=== PATIENT | female | born 1950 | race Caucasian/White ===

== ENCOUNTER 2020-08-21 08:56 | Outpatient (REF) | payer MEDICARE, BC, SELFPAY ==
[2020-08-21 10:32] LABS: Estimated Average Glucose 105 mg/dL; Hemoglobin A1c % 5.3 %
[2020-08-21 11:01] LABS: Alanine Aminotransferase 19 U/L (0-31); Albumin Level 4.4 g/dL (3.5-5.0); Alkaline Phosphatase 37 U/L (39-117); Anion Gap 15 (12-20); Aspartate Amino Transferase 25 U/L (5-31); Bilirubin Total 0.4 mg/dL (0.0-1.0); Blood Urea Nitrogen 16 mg/dL (9-16); Calcium 9.8 mg/dL (8.4-10.2); Carbon Dioxide 25 mmol/L (22-29); Chloride 101 mmol/L (96-108); Cholesterol 143 mg/dL; Estimated Glomerular Filt Rate > 60; Glucose Fasting 89 mg/dL (60-99); HDL Cholesterol 59 mg/dL; LDL Cholesterol Calculated 73 mg/dl; Potassium 4.2 mmol/l (3.3-5.1); Sodium 137 mmol/L (135-145); Total Protein 6.4 g/dL (6.5-8.0); Triglycerides 55 mg/dL
[2020-08-21 11:28] LABS: Creatinine Urine 56.87 mg/dL; Microalbumin Urine < 5.0 mg/L; TSH reflex Free T4 1.05 mIU/mL (0.32-4.0)
== END 2020-08-21 08:57 | disposition home or self-care (01) ==
LOC: HO.10HDL 08:56
PROVIDERS: Visit Provider Family Medicine
DX: R73.03 Prediabetes (principal); Z00.00 Encounter for general adult medical examination without abnormal findings; I10 Essential (primary) hypertension
CPT/HCPCS: 80053; 80061; 82043; 83036; 84443

== ENCOUNTER 2021-01-15 08:59 | Outpatient (REF) | payer MEDICARE, BC, SELFPAY ==
[2021-01-15 11:02] LABS: Alanine Aminotransferase 17 U/L (0-31); Albumin Level 4.9 g/dL (3.5-5.0); Alkaline Phosphatase 39 U/L (39-117); Anion Gap 16 (12-20); Aspartate Amino Transferase 24 U/L (5-31); Bilirubin Total 0.5 mg/dL (0.0-1.0); Blood Urea Nitrogen 21 mg/dL (9-16); Carbon Dioxide 29 mmol/L (22-29); Chloride 102 mmol/L (96-108); Cholesterol 162 mg/dL; Estimated Glomerular Filt Rate > 60; Glucose Fasting 92 mg/dL (60-99); HDL Cholesterol 68 mg/dL; LDL Cholesterol Calculated 84 mg/dl; Potassium 4.8 mmol/L (3.3-5.1); Sodium 142 mmol/L (135-145); Total Protein 6.9 g/dL (6.5-8.0); Triglycerides 54 mg/dL
== END 2021-01-15 09:00 | disposition home or self-care (01) ==
LOC: HO.WFDLDS 08:59
PROVIDERS: Visit Provider Family Medicine
DX: Z00.00 Encounter for general adult medical examination without abnormal findings (principal); E11.9 Type 2 diabetes mellitus without complications
CPT/HCPCS: 36415; 80053; 80061; 84443

== ENCOUNTER 2021-03-02 07:56 | Outpatient (REF) | payer MEDICARE, BC, SELFPAY ==
--- NOTE | ~2021-03-02 | MM_ITS ---
EXAMINATION: MM SCREENING DIGITAL BREAST TOMOSYNTHESIS, BILATERAL CLINICAL INFORMATION: Screening. Asymptomatic. Remote history right breast surgery 2009. The lifetime risk of breast cancer based on the Tyrer-Cuzick Model is 3%. COMPARISON: Mammography: 02/01/2020, 01/28/2019, 07/09/2018, 01/05/2018, 12/22/2017 TECHNIQUE: Digital breast tomosynthesis is performed in both the craniocaudal and mediolateral oblique views along with computer-aided detection (CAD). Synthesized 2D images are generated from the tomosynthesis. FINDINGS: There are scattered areas of fibroglandular density (ACR BI-RADS breast composition Category b). There is no significant mass or architectural abnormality or abnormal calcifications. Minor scarring central right breast is stable from prior studies. The left breast has a chronic nodule central breast. There are bilateral scattered round calcifications with stable fine punctate calcifications inferior medial left breast. The axilla and skin contours are unremarkable. There are no significant changes from prior studies. MM/MM tomosynthesis screening BI IMPRESSION: No mammographic evidence of malignancy. ASSESSMENT: BI-RADS 2: Benign RECOMMENDATION: Routine annual mammography screening. This patient's information was entered into a reminder system with a target due date for their next mammogram.
== END 2021-03-02 07:57 | disposition home or self-care (01) ==
LOC: HO.MAMMO 07:56
PROVIDERS: Visit Provider Family Medicine
DX: Z12.31 Encounter for screening mammogram for malignant neoplasm of breast (principal)
CPT/HCPCS: 77063; 77067

== ENCOUNTER 2021-05-01 08:15 | Day surgery (SDC) | payer MEDICARE, BC, SELFPAY ==
[2021-04-25 11:52] VITALS: BMI 19.9
[2021-05-01 08:38] VITALS: BP 141/48; PULSE 59; RESP 18; TEMP 36.3; O2SAT 98
[2021-05-01] MEDS: Lactated Ringers 1,000 ML 50 ML IVCONT (08:53)
--- NOTE | 2021-05-01 09:33 | HO.ANESPROP2 ---
HPI - Anesthesia Eval Consult details Narrative: surveillance colonoscopy PMFSH Active Problems Active Problems: All Active Problems (Updated 04/25/21 @ 11:55 by Nakita Galvan) Essential hypertension (Acute) Diet-controlled diabetes mellitus (Acute) Laboratory examination ordered as part of a routine general medical examination (Acute) Annual physical exam (Acute) Screening for colon cancer (Acute) Breast cancer screening by mammogram (Acute) Screening for cervical cancer (Acute) H/O total hysterectomy (Acute) Past Medical History Medical History COVID-19 vaccine administered Diabetes Elevated cholesterol GERD (gastroesophageal reflux disease) History of diverticulitis HTN (hypertension) Functional capacity: independent ambulation Narrative: post menopausal Family History Family history of problems with anesthesia: No Surgical History Surgical History H/O colonoscopy Hx of breast biopsy Hx of cataract extraction Hx of section Hx of colectomy Hx of hysterectomy History of Problems with Anesthesia: No Social History Social History Patient Tobacco Use Status: Tobacco use Unknown Use of substances other than those prescribed or required for medical reasons: No Advance Directives Information Provided: No Travel History History of recent travel: No Meds Allergies Allergy/AdvReac Type Severity Reaction Status Date / Time No Known Allergies Allergy Verified 01/15/21 08:24 [No Known Allergies*] Active Medications: Current Medications Generic Name Dose Route Start Last Admin Trade Name Freq PRN Reason Stop Dose Admin Acetaminophen 650 mg 05/01/21 09:08 Acetaminophen 325 Mg Tablet PO ONCE PRN Pain, Mild (Pain Scale 1-3) Lactated Ringer's 1,000 mls @ 50 mls/hr 05/01/21 07:15 05/01/21 08:53 Lr IVCONT 50 mls/hr .Q20H YOLANDE Administration Ondansetron HCl 4 mg 05/01/21 09:08 Ondansetron Hcl 4 Mg/2 Ml Vial IVPUSH ONCE PRN Nausea and Vomiting Exam Exam Date and Time: May 01, 202133 Height,Weight and Vital Signs: Height 5 ft 4 in Weight 52.617 kg Last Vital Signs Temp 97.3 F 05/01/21 08:38 Pulse 59 05/01/21 08:38 Resp 18 05/01/21 08:38 BP 141/48 H 05/01/21 08:38 Pulse Ox 98 05/01/21 08:38 Narrative Narrative: no loose teeth Assessment and Plan Assessment Anesthesia Assessment: Anesthesia Plan Discussed and Chart Reviewed Final Anesthetic Review Family History of Problems with Anesthesia: No History of Problems with Anesthesia: No NPO: Yes ASA Class: III Final Preanesthetic Review: No Changes in Pt Med Stat, Meds/Allgs Chart Reviewed, Consent Obtained/Reviewed and Anes Risks/Benef Reviewed Patient Risk: Intermediate Procedure Risk: Low Assessment/Block/Sedation in SS: Assess/Block/Sedation-SS Anesthetic Plan Anesthetic Plan: MAC: and Agree w/ Assess. and Plan Disposition: Standard PACU
--- NOTE | 2021-05-01 09:47 | MHC.SHP ---
Pre-Procedural Eval Section A Date of Service: 05/01/21 The patient is an INPATIENT: No Changes since office visit: No Cold of Flu in the past 2 weeks, No New Medical Problems, No Changes in Medication and No Patient answered all questions The History & Physical has been completed within 30 days and I have reviewed it.: Yes Section B Chief Complaint: screening Allergies: Allergies Allergy/AdvReac Type Severity Reaction Status Date / Time No Known Allergies Allergy Verified 01/15/21 08:24 [No Known Allergies*] Plan I have reviewed the history and physical and performed a pertinent physical examination on my patient. No changes have occurred unless specified.
--- NOTE | 2021-05-01 10:15 | P.BOP_ITS ---
Brief Operative Note Date of Service: 05/01/21 Pre-op diagnosis: screening Post-op diagnosis: same (colon polyps) Procedure: colonoscopy Surgeon: Rodrigo Martel Anesthesia: MAC Was an Application Security Developer used for this Procedure?: No Estimated blood loss (mL): 0 Pathology: other (polyps x2) Condition: stable Disposition: PACU
[2021-05-01 10:16] VITALS: BP 111/83; PULSE 65; RESP 18; TEMP 36.1; O2SAT 98
[2021-05-01 10:31] VITALS: BP 133/90; PULSE 60; RESP 18; TEMP 36.1; O2SAT 98
--- NOTE | 2021-05-01 16:14 | OP_ITS ---
SURGEON: Rodrigo Martel MD INDICATIONS: Colon cancer screening. PREOPERATIVE DIAGNOSIS: POSTOPERATIVE DIAGNOSIS: PROCEDURE PERFORMED: Colonoscopy to the terminal ileum with snare polypectomy. ESTIMATED BLOOD LOSS: COMPLICATIONS: ANESTHESIA: ASSISTANTS: SPECIMENS: MEDICATIONS: Monitored anesthesia care. DESCRIPTION OF PROCEDURE: History and physical performed. The risks and benefits of procedure were explained to the patient. Informed consent was obtained. The patient was placed in left lateral decubitus position. A digital rectal exam was performed and was found to be normal. The Olympus pediatric video colonoscope was introduced into the rectum and advanced to the cecum without difficulty. The cecum was identified by transillumination, palpation, and identification of ileocecal valve. Examination was performed and the scope was removed. She tolerated the procedure well and was taken to recovery area in stable condition. FINDINGS: The terminal ileum was normal. The visualized colonic mucosa was normal. The quality of prep was good. Two polyps in the right colon measuring approximately 6 to 7 mm were identified and removed with a snare. No other polyps were identified. Retroflexed examination was normal. There was mild sigmoid diverticulosis. IMPRESSION: Colon polyps. RECOMMENDATION: Follow up the biopsy results. MD ALONZO Hui/ADA / [id number]
== END 2021-05-01 10:53 | disposition home or self-care (01) ==
PROVIDERS: PCP Family Medicine; Visit Provider Internal Medicine Gastroenterology
PROC: 0DJD8ZZ Inspection of Lower Intestinal Tract, Via Natural or Artificial Opening Endoscopic (ICD-10-PCS; CPT 45378; principal; 2021-05-01 09:40)
DX: Z12.11 Encounter for screening for malignant neoplasm of colon (principal); D12.2 Benign neoplasm of ascending colon; K57.30 Diverticulosis of large intestine without perforation or abscess without bleeding; I10 Essential (primary) hypertension; E11.9 Type 2 diabetes mellitus without complications; Z90.49 Acquired absence of other specified parts of digestive tract; Z79.899 Other long term (current) drug therapy
CPT/HCPCS: 45385; 88305

== ENCOUNTER 2021-06-29 09:36 | Outpatient (REF) | payer MEDICARE, BC, SELFPAY ==
[2021-06-29 10:57] LABS: Anion Gap 11 (12-20); Blood Urea Nitrogen 19 mg/dL (9-16); Calcium 10.1 mg/dL (8.4-10.2); Carbon Dioxide 29 mmol/L (22-29); Chloride 103 mmol/L (96-108); Estimated Glomerular Filt Rate > 60; Glucose Random 94 mg/dL (60-115); Potassium 4.1 mmol/L (3.3-5.1); Sodium 139 mmol/L (135-145)
[2021-06-29 11:04] LABS: Estimated Average Glucose 100 mg/dL; Hemoglobin A1c % 5.1 %
== END 2021-06-29 09:37 | disposition home or self-care (01) ==
LOC: HO.WFDLDS 09:36
PROVIDERS: Visit Provider Family Medicine
DX: Z00.00 Encounter for general adult medical examination without abnormal findings (principal); E11.9 Type 2 diabetes mellitus without complications
CPT/HCPCS: 36415; 80048; 83036

== ENCOUNTER 2021-12-24 08:32 | Outpatient (REF) | payer MEDICARE, BC, SELFPAY ==
[2021-12-24 11:34] LABS: MANUAL DIFF FLAG NO
[2021-12-24 11:41] LABS: Basophils Absolute Auto 0.1 X10*3/uL (0.0-0.2); Basophils Percent Auto 1.6 % (0-2); Eosinophils Absolute Auto 0.3 X10*3/uL (0.0-0.4); Hematocrit 37.4 % (37.0-47.0); Hemoglobin 12.5 g/dl (12.0-16.0); Imm Gran Abs Auto 0.01 X10*3/uL (0.00-0.03); Imm Gran Pct Auto 0.2 % (0.0-0.4); Lymphocytes Absolute Auto 1.9 X10*3/uL (1.2-4.9); Mean Corpuscular HGB Conc 33.4 g/dl (31.0-35.0); Mean Corpuscular Hemoglobin 29.6 pg (27.0-33.0); Mean Corpuscular Volume 88.4 fL (80.0-98.0); Mean Platelet Volume 10.4 fL (9.4-12.3); Monocytes Absolute Auto 0.5 X10*3/uL (0.1-1.2); Monocytes Percent Auto 10.4 % (2-11); Neutrophils Absolute Auto 1.7 x10*3/uL (2.0-8.3); Neutrophils Percent Auto 37.8 % (45-73); Platelet Count 239 X10*3/uL (160-400); Red Blood Count 4.23 X10*6/uL (4.20-5.50); Red Cell Distribution Width 12.5 % (11.0-16.0); White Blood Count 4.4 X10*3/uL (4.8-10.8)
[2021-12-24 11:53] LABS: Alanine Aminotransferase 20 U/L (0-31); Albumin Level 4.6 g/dL (3.5-5.0); Alkaline Phosphatase 36 U/L (39-117); Anion Gap 11 (12-20); Aspartate Amino Transferase 24 U/L (5-31); Bilirubin Total 0.5 mg/dL (0.0-1.0); Blood Urea Nitrogen 18 mg/dL (9-16); Carbon Dioxide 31 mmol/L (22-29); Chloride 103 mmol/L (96-108); Cholesterol 157 mg/dL; Estimated Glomerular Filt Rate > 60; Glucose Fasting 96 mg/dL (60-99); HDL Cholesterol 70 mg/dL; LDL Cholesterol Calculated 77 mg/dl; Potassium 4.5 mmol/L (3.3-5.1); Sodium 140 mmol/L (135-145); Total Protein 6.7 g/dL (6.5-8.0); Triglycerides 50 mg/dL
[2021-12-24 12:11] LABS: Appearance Urine HAZY; Color Urine YELLOW; Glucose Urine UA NEG (NEG); Leukocyte Esterase Urine NEG (NEG); Nitrite Urine NEG (NEG); PH 8.5 (5.0-8.0); Urine Blood NEG (NEG); Urine Ketones NEG (NEG); Urine Protein NEG (NEG-TRACE)
[2021-12-24 12:15] LABS: TSH reflex Free T4 1.51 uIU/mL (0.32-4.0)
[2021-12-24 13:20] LABS: Creatinine Urine 104.04 mg/dL; Microalbumin Urine < 5.0 mg/L
== END 2021-12-24 08:33 | disposition home or self-care (01) ==
LOC: HO.WFDLDS 08:32
PROVIDERS: Visit Provider Family Medicine
DX: Z00.00 Encounter for general adult medical examination without abnormal findings (principal); I10 Essential (primary) hypertension
CPT/HCPCS: 36415; 80053; 80061; 81003; 82043; 84443; 85025

== ENCOUNTER 2022-03-04 07:13 | Outpatient (REF) | payer MEDICARE, BC, SELFPAY ==
--- NOTE | ~2022-03-04 | MM_ITS ---
EXAMINATION: MM SCREENING DIGITAL BREAST TOMOSYNTHESIS, BILATERAL CLINICAL INFORMATION: Screening. Asymptomatic. History of previous rectal surgery The lifetime risk of breast cancer based on the Tyrer-Cuzick Model is 2.9%. COMPARISON: Mammography: March 02, 2021 and studies dating back to December 09, 2011 TECHNIQUE: Digital breast tomosynthesis is performed in both the craniocaudal and mediolateral oblique views along with computer-aided detection (CAD). Synthesized 2D images are generated from the tomosynthesis. FINDINGS: The breasts are heterogeneously dense, which may obscure small masses (ACR BI-RADS breast composition Category c). There are no new significant masses, abnormal calcifications, or other abnormalities. Architecture distortion from previous surgery is again seen about the anterior inferior aspect of the right breast. Stable circumscribed density is seen within the left breast. MM/MM tomosynthesis screening BI IMPRESSION: There are no significant changes from prior study. ASSESSMENT: BI-RADS 2: Benign RECOMMENDATION: Routine annual mammography screening. This patient's information was entered into a reminder system with a target due date for their next mammogram.
== END 2022-03-04 07:14 | disposition home or self-care (01) ==
LOC: HO.MAMMO 07:13
PROVIDERS: Visit Provider Family Medicine
DX: Z12.31 Encounter for screening mammogram for malignant neoplasm of breast (principal)
CPT/HCPCS: 77063; 77067

== ENCOUNTER 2022-10-03 08:13 | Outpatient (REF) | payer MEDICARE, BC, SELFPAY ==
[2022-10-03 11:34] LABS: Appearance Urine Cloudy; Color Urine Yellow; Glucose Urine UA Negative (Negative); Leukocyte Esterase Urine Trace (Negative); Nitrite Urine Negative (Negative); UMIC TRIGGER UA YES; Urine Blood Negative (Negative); Urine Ketones Negative (Negative); Urine Protein Negative (Neg-Trace)
[2022-10-03 11:46] LABS: Bacteria Urine None Seen (None Seen); Hyaline Casts Urine 0-2 /LPF (0-2); RBC Urine 0-2 /HPF (0-2); Squamous Epithelial Cell Urine >20 /HPF (0-2); WBC Urine 0-5 /HPF (0-5)
[2022-10-03 11:54] LABS: Estimated Average Glucose 103 mg/dL; Hemoglobin A1c % 5.2 %
[2022-10-03 12:05] LABS: Alanine Aminotransferase 13 U/L (0-31); Albumin Level 4.7 g/dL (3.5-5.0); Alkaline Phosphatase 32 U/L (39-117); Anion Gap 12 (12-20); Aspartate Amino Transferase 25 U/L (5-31); Bilirubin Total 0.5 mg/dL (0.0-1.0); Blood Urea Nitrogen 22 mg/dL (9-16); Calcium 9.8 mg/dL (8.4-10.2); Carbon Dioxide 29 mmol/L (22-29); Chloride 103 mmol/L (96-108); Creatinine Urine 115.54 mg/dL; Estimated Glomerular Filt Rate > 60; Glucose Fasting 84 mg/dL (60-99); Microalbumin Urine < 5.0 mg/L; Potassium 4.6 mmol/L (3.3-5.1); Sodium 139 mmol/L (135-145); Total Protein 6.7 g/dL (6.5-8.0)
== END 2022-10-03 08:14 | disposition home or self-care (01) ==
LOC: HO.WFDLDS 08:13
PROVIDERS: Visit Provider Family Medicine
DX: Z00.00 Encounter for general adult medical examination without abnormal findings (principal); R73.01 Impaired fasting glucose; I10 Essential (primary) hypertension
CPT/HCPCS: 36415; 80053; 81001; 82043; 83036

== ENCOUNTER 2023-03-10 07:19 | Outpatient (REF) | payer MEDICARE, BC, SELFPAY ==
--- NOTE | ~2023-03-10 | MM_ITS ---
EXAMINATION: MM SCREENING DIGITAL BREAST TOMOSYNTHESIS, BILATERAL CLINICAL INFORMATION: Screening. Asymptomatic. Remote right breast surgery, 2009. The lifetime risk of breast cancer based on the Tyrer-Cuzick Model is 3%. COMPARISON: Mammography: 03/04/2022, 03/02/2021, 02/01/2020 TECHNIQUE: Digital breast tomosynthesis is performed in both the craniocaudal and mediolateral oblique views along with computer-aided detection (CAD). Synthesized 2D images are generated from the tomosynthesis. FINDINGS: There are scattered areas of fibroglandular density (ACR BI-RADS breast composition Category b). Parenchymal pattern is similar to prior exams and there is no developing density or interval architectural abnormality. Again, there are scattered bilateral benign round, rim, and dermal calcifications. There are no significant masses, abnormal calcifications, or other abnormalities. There is a stable nodule asymmetry central left breast on CC view similar to prior studies. The axilla and skin contours are unremarkable. No significant changes from prior exams. MM/MM tomosynthesis screening BI IMPRESSION: No mammographic evidence of malignancy. ASSESSMENT: BI-RADS 2: Benign RECOMMENDATION: Routine annual mammography screening. This patient's information was entered into a reminder system with a target due date for their next mammogram.
== END 2023-03-10 07:20 | disposition home or self-care (01) ==
LOC: HO.MAMMO 07:19
PROVIDERS: PCP Family Medicine; Visit Provider Family Medicine
DX: Z12.31 Encounter for screening mammogram for malignant neoplasm of breast (principal)
CPT/HCPCS: 77063; 77067

== ENCOUNTER 2023-05-23 08:19 | Outpatient (REF) | payer MEDICARE, BC, SELFPAY ==
[2023-05-23 11:16] LABS: MANUAL DIFF FLAG NO
[2023-05-23 11:31] LABS: Basophils Absolute Auto 0.1 X10*3/uL (0.0-0.2); Basophils Percent Auto 2.1 % (0-2); Eosinophils Absolute Auto 0.3 X10*3/uL (0.0-0.4); Eosinophils Percent Auto 7.2 % (0-4); Hematocrit 37.2 % (37.0-47.0); Hemoglobin 12.2 g/dl (12.0-16.0); Lymphocytes Absolute Auto 1.6 X10*3/uL (1.2-4.9); Lymphocytes Percent Auto 37.9 % (20-40); Mean Corpuscular HGB Conc 32.8 g/dl (31.0-35.0); Mean Corpuscular Hemoglobin 29.7 pg (27.0-33.0); Mean Corpuscular Volume 90.5 fL (80.0-98.0); Mean Platelet Volume 10.4 fL (9.4-12.3); Monocytes Absolute Auto 0.3 X10*3/uL (0.1-1.2); Monocytes Percent Auto 8.1 % (2-11); Neutrophils Absolute Auto 1.9 x10*3/uL (2.0-8.3); Neutrophils Percent Auto 44.7 % (45-73); Platelet Count 274 X10*3/uL (160-400); Red Blood Count 4.11 X10*6/uL (4.20-5.50); Red Cell Distribution Width 12.8 % (11.0-16.0); White Blood Count 4.2 X10*3/uL (4.8-10.8)
[2023-05-23 12:46] LABS: Estimated Average Glucose 103 mg/dL; Hemoglobin A1c % 5.2 % (<6.0)
[2023-05-23 12:52] LABS: Alanine Aminotransferase 23 U/L (0-31); Albumin Level 4.5 g/dL (3.5-5.0); Alkaline Phosphatase 26 U/L (39-117); Anion Gap 12 (12-20); Aspartate Amino Transferase 30 U/L (5-31); Bilirubin Total 0.4 mg/dL (0.0-1.0); Blood Urea Nitrogen 16 mg/dL (9-16); Calcium 10.1 mg/dL (8.4-10.2); Carbon Dioxide 27 mmol/L (22-29); Chloride 105 mmol/L (96-108); Cholesterol 160 mg/dL (<200); Estimated Glomerular Filt Rate 56; Glucose Random 91 mg/dL (60-115); HDL Cholesterol 78 mg/dL (>40); LDL Cholesterol Calculated 70 mg/dL (<100); Potassium 4.4 mmol/L (3.3-5.1); Sodium 140 mmol/L (135-145); Total Protein 6.8 g/dL (6.5-8.0); Triglycerides 64 mg/dL (<150)
[2023-05-23 13:09] LABS: Creatinine Urine 153.66 mg/dL; Microalbumin Urine < 5.0 mg/L
== END 2023-05-23 08:20 | disposition home or self-care (01) ==
LOC: HO.WFDLDS 08:19
PROVIDERS: Visit Provider Family Medicine
DX: Z13.89 Encounter for screening for other disorder (principal)
CPT/HCPCS: 36415; 80053; 80061; 82043; 83036; 85025

== ENCOUNTER 2023-05-29 10:33 | Outpatient (AMB) | payer MEDICARE, BC, SELFPAY ==
[2023-05-29 10:38] VITALS: BP 128/72; PULSE 60; O2SAT 99; BMI 23.3
--- NOTE | 2023-05-29 10:38 | MHC.PC.OV ---
Vital Signs 05/29/23 10:38 Height 5 ft 4 in Weight 136 lb BMI 23.3 BP 128/72 Blood Pressure Location Lt brachial Position Sitting Pulse 60 Pulse Source Pulse Oximeter Pulse Oximetry (%) 99 Oxygen Delivery Method Room Air Intake Visit Reasons: f/u hypertension and diet controlled DM Intake Note: Patient is following up on hypertension and diaet controlled diabetes. Allergies No Known Allergies [No Known Allergies*] Allergy (Verified 05/29/23 10:42) Tobacco use date assessed: 05/29/23 Fall risk assessment: No Falls in past year Last assessed Fall Risk: 05/29/23 Dental Screening Dental Screen Date: 05/29/23 Did you have a dental visit in the last 12 months?: Yes Did you have a dental problem in the last 6 months where you did not have access to dental care?: No Was dental information given to patient?: Patient has dentist HPI f/u hypertension and diet controlled DM HPI Details 72 y/o female presents to f/u diet controlled diabetes and chronic conditions. Last A1c 10/03/22 5.2%. Blood pressure today is 128/72. She is on hydrochlorothiazide 25mg and lisinopril 10mg daily. Labs were drawn 05/23/23. Reviewed labs with pt. A1c 5.2%. Triglycerides 64. TC 160. LDL 70. HDL 78. She is on artovastatin 10mg daily. HPI Comments History of Present Illness Details Documentation assistance for Easton Mari MD, was provided by Jimbo Singh,? Comprehensive Advisor on 05/29/2023 11:12 AM HUMBERTO. I, Dr. Mari, have read, observed, and verified documentation.? PFSH Medical History COVID-19 vaccine administered Diabetes Elevated cholesterol GERD (gastroesophageal reflux disease) History of diverticulitis HTN (hypertension) Surgical History H/O colonoscopy Hx of breast biopsy Hx of cataract extraction Hx of section Hx of colectomy Hx of hysterectomy Social History Housing: House Patient Tobacco Use Status: Never used Tobacco e-Cigarette/Vaping Use: Never Used Second Hand Smoke Exposure: No service: No Current occupational status: retired Current occupational exposures/hazards: No Cognitive needs: No Hearing needs: No Vision needs: No Questionnaire Thrive Questionnaire Date Thrive assessed: 10/07/22 TRUE-7 AMB Questionnaire TRUE-7 Date TRUE - 7 assessed: 10/07/22 Source: Developed by Drs. Jamil Templeton, Valery Bedoya, Leandro Cali and colleagues, with an educational halle from [employer] Review of Systems Const Denies chills, Denies fatigue, Denies fever(s), Denies headache(s) and Denies weakness ENT Denies dizziness and Denies headache(s) Card Denies chest pain, Denies lightheadedness, Denies dyspnea and Denies other (Palpitations) Resp Denies cough, Denies dyspnea, Denies wheezing and Denies other ( shortness of breath) Musc Denies numbness and Denies tingling Neuro Denies dizziness, Denies headache(s), Denies numbness, Denies tingling, Denies paresthesias and Denies weakness Psych Denies anxiety and Denies depression Endo Denies fatigue Aller/Immun Denies wheezing Physical exam (Primary Care) Vital Signs: Last Vital Signs Pulse 60 05/29/23 10:38 BP 128/72 05/29/23 10:38 Pulse Ox 99 05/29/23 10:38 Oxygen Delivery Method Room Air 05/29/23 10:38 BMI result Body Mass Index 23.3 Tobacco/Smoking Status: Tobacco use Status Tobacco use date assessed 05/29/23 05/29/23 10:44 Patient Tobacco Use Status Never used Tobacco 05/29/23 10:44 e-Cigarette/Vaping Use Never Used 05/29/23 10:44 Thrive Assessment: Date of Thrive Assessment Date Thrive assessed 10/07/22 05/29/23 10:44 Const General: no acute distress and well developed Nutritional Appearance: well nourished Orientation/consciousness: patient oriented x3 HENMT Head: Yes normocephalic and Yes atraumatic Eyes General: appearance normal, both eyes and all related structures Pupils: Equal, round and reactive pupils present EOM: EOMs intact bilaterally Resp Effort & Inspection: normal respiratory effort Auscultation: clear to auscultation bilaterally Cardio Rate: regular rate Rhythm: regular rhythm Heart sounds: S1 normal heart sound present, S2 normal heart sound present, no gallops, no murmurs and no rubs Neuro General: patient oriented x3 and gait normal Cranial nerves: Yes Equal, round and reactive pupils present Psych Affect: normal affect Assessment and Plan Assessment & Plan (1) Essential hypertension: Code(s): I10 - Essential (primary) hypertension Plan: Blood pressure is controlled. Goal is less than 140/90 Continue current medication regimen (2) Diet-controlled diabetes mellitus: Code(s): E11.9 - Type 2 diabetes mellitus without complications Plan: A1c 5.2%. Has gained back some weight and notes some dietary indiscretions. Continue to work at a diabetic diet low in sugars and starches. Continue exercise and weight control (3) Hyperlipidemia: Code(s): E78.5 - Hyperlipidemia, unspecified Plan: Lipids are well controlled on atorvastatin 10 mg daily Continue atorvastatin Coding Level of Care Code Est Pt Level 3 (12734) Diagnoses Essential hypertension I10 Diet-controlled diabetes mellitus E11.9 Hyperlipidemia E78.5
== END 2023-05-29 11:56 | disposition home or self-care (01) ==
PROVIDERS: PCP Family Medicine; Visit Provider Family Medicine
DX: I10 Essential (primary) hypertension (principal); E11.9 Type 2 diabetes mellitus without complications; E78.5 Hyperlipidemia, unspecified
CPT/HCPCS: 99213

== ENCOUNTER 2023-11-10 08:35 | Outpatient (REF) | payer MEDICARE, SELFPAY ==
[2023-11-10 11:25] LABS: MANUAL DIFF FLAG NO
[2023-11-10 11:43] LABS: Appearance Urine Clear; Color Urine Yellow; Glucose Urine UA Negative (Negative); Leukocyte Esterase Urine Large (3+) (Negative); Nitrite Urine Negative (Negative); PH 7.5 (5.0-9.0); Specific Gravity - Urine 1.015 (1.005-1.025); UMIC TRIGGER UA YES; Urine Blood Negative (Negative); Urine Ketones Negative (Negative); Urine Protein Negative (Neg-Trace)
[2023-11-10 11:47] LABS: Bacteria Urine 1+ (None Seen); Hyaline Casts Urine 0-2 /LPF (0-2); RBC Urine 0-2 /HPF (0-2); WBC Urine >50 /HPF (0-5)
[2023-11-10 12:04] LABS: Basophils Absolute Auto 0.1 X10*3/uL (0.0-0.2); Basophils Percent Auto 1.5 % (0-2); Eosinophils Absolute Auto 0.3 X10*3/uL (0.0-0.4); Eosinophils Percent Auto 3.6 % (0-4); Hematocrit 37.9 % (37.0-47.0); Hemoglobin 12.9 g/dl (12.0-16.0); Imm Gran Abs Auto 0.02 X10*3/uL (0.00-0.03); Imm Gran Pct Auto 0.2 % (0.0-0.4); Lymphocytes Absolute Auto 2.2 X10*3/uL (1.2-4.9); Lymphocytes Percent Auto 24.9 % (20-40); Mean Corpuscular Hemoglobin 30.3 pg (27.0-33.0); Monocytes Absolute Auto 0.6 X10*3/uL (0.1-1.2); Monocytes Percent Auto 7.4 % (2-11); Neutrophils Absolute Auto 5.4 x10*3/uL (2.0-8.3); Neutrophils Percent Auto 62.4 % (45-73); Platelet Count 343 X10*3/uL (160-400); Red Blood Count 4.26 X10*6/uL (4.20-5.50); Red Cell Distribution Width 12.9 % (11.0-16.0); White Blood Count 8.6 X10*3/uL (4.8-10.8)
[2023-11-10 12:43] LABS: Creatinine Urine 128.18 mg/dL; Microalbum/Creatinine Ratio Ur 6.2 ug/mg cr (<30)
[2023-11-10 13:29] LABS: Alanine Aminotransferase 13 U/L (0-31); Albumin Level 4.5 g/dL (3.5-5.0); Alkaline Phosphatase 38 U/L (39-117); Anion Gap 15 (12-20); Aspartate Amino Transferase 21 U/L (5-31); Bilirubin Total 0.3 mg/dL (0.0-1.0); Blood Urea Nitrogen 16 mg/dL (9-16); Carbon Dioxide 27 mmol/L (22-29); Chloride 102 mmol/L (96-108); Cholesterol 168 mg/dL (<200); Estimated Glomerular Filt Rate > 60; Glucose Fasting 82 mg/dL (60-99); HDL Cholesterol 69 mg/dL (>40); LDL Cholesterol Calculated 81 mg/dL (<100); Potassium 3.8 mmol/L (3.3-5.1); Sodium 140 mmol/L (135-145); Total Protein 7.2 g/dL (6.5-8.0); Triglycerides 91 mg/dL (<150)
[2023-11-10 13:44] LABS: TSH reflex Free T4 1.68 uIU/mL (0.32-4.0)
== END 2023-11-10 08:36 | disposition home or self-care (01) ==
LOC: HO.WFDLDS 08:35
PROVIDERS: Visit Provider Family Medicine
DX: Z00.00 Encounter for general adult medical examination without abnormal findings (principal); I10 Essential (primary) hypertension
CPT/HCPCS: 36415; 80053; 80061; 81001; 82043; 82570; 84443; 85025

== ENCOUNTER 2023-11-12 10:56 | Outpatient (AMB) | payer MEDICARE, BC, SELFPAY ==
--- NOTE | 2023-11-12 11:01 | A.OFFPC_ITS ---
Vital Signs 11/12/23 11:02 Height 5 ft 4 in Weight 141 lb 4 oz BMI 24.2 BP 140/78 H Blood Pressure Location Lt brachial Position Sitting Pulse 74 Pulse Source Pulse Oximeter Pulse Oximetry (%) 97 Oxygen Delivery Method Room Air Intake Visit Reasons: Extended exam with f/u labs and health maint. Allergies No Known Allergies [No Known Allergies*] Allergy (Verified 11/12/23 11:04) Tobacco use date assessed: 11/12/23 Dental Screening Dental Screen Date: 11/12/23 Did you have a dental visit in the last 12 months?: Yes Did you have a dental problem in the last 6 months where you did not have access to dental care?: No Was dental information given to patient?: Patient has dentist HPI Extended exam with f/u labs and health maint. HPI Details 72 y/o female presents for an extended e xam with f/u labs and health maintenance. Labs were drawn 11/10/23. Reviewed labs with pt. Triglycerides 91. TC 168. LDL 81. HDL 69. She is on artovastatin 10mg daily. A1c today 5.9%. Diet controlled diabetes. She did note she gained a bit of weight. She reports she does eat a healthy diet all the time. [facility] Medical History COVID-19 vaccine administered History of diverticulitis Elevated cholesterol GERD (gastroesophageal reflux disease) Diabetes HTN (hypertension) Surgical History Hx of cataract extraction H/O colonoscopy Hx of colectomy Hx of breast biopsy Hx of hysterectomy Hx of section Social History Housing: House Patient Tobacco Use Status: Never used Tobacco e-Cigarette/Vaping Use: Never Used Second Hand Smoke Exposure: No service: No Current occupational status: retired Current occupational exposures/hazards: No Cognitive needs: No Hearing needs: No Vision needs: No Questionnaire PHQ-9 Over the last 2 weeks, how often have you been bothered by any of the following problems? 1. Little interest or pleasure in doing things: not at all 2. Feeling down, depressed, or hopeless: not at all 3. Trouble falling or staying asleep, or sleeping too much: not at all 4. Feeling tired or having little energy: not at all 5. Poor appetite or overeating: not at all 6. Feeling bad about yourself - or that you are a failure or have let yourself or your family down: not at all 7. Trouble concentrating on things, such as reading the newspaper or watching television: not at all 8. Moving or speaking so slowly that other people could have noticed. Or the opposite - being so fidgety or restless that you have been moving around a lot more than usual: not at all 9. Thoughts that you would be better off or of hurting yourself in some way: not at all Total score: 0 Source: Developed by Drs. Jamil Templeton, Valery Bedoya, Leandro Cali and colleagues, with an educational halle from [employer] Thrive Questionnaire Date Thrive assessed: 11/12/23 I am a: Patient What is your living situation today?: I have a steady place to live Within the past 12 months, did the food you bought not last and you didn't have the money to get more?: Never true Within the past 12 months, did you worry whether your food would run out before you got money to buy more?: Never true THRIVE Score: 0 TRUE-7 AMB Questionnaire TRUE-7 Date TRUE - 7 assessed: 10/07/22 Feeling nervous, anxious, or on edge: 0 = Not at all Not being able to stop or control worryin = Not at all Worrying too much about different things: 2 = More than half the days Trouble relaxin = More than half the days Being so restless that it is hard to sit still: 1 = Several days Becoming easily annoyed or irritable: 0 = Not at all Feeling afraid as if something awful might happen: 0 = Not at all Total TRUE-7 score (0-4 normal; 5-9 mild; 10-14 moderate; 15-21 severe): 5 Source: Developed by Drs. Jamil Templeton, Valery Bedoya, Leandro Cali and colleagues, with an educational halle from [employer] Review of Systems Const Denies chills, Denies fatigue, Denies fever(s), Denies headache(s) and Denies weakness Eyes Denies change in vision ENT Denies dizziness, Denies headache(s), Denies hearing loss, Denies nasal congestion, Denies sinus pain, Denies sinus pressure and Denies sore throat Card Denies chest pain, Denies lightheadedness, Denies dyspnea and Denies other (palpitations) Resp Denies cough, Denies dyspnea and Denies wheezing GI Denies abdominal pain, Denies melena, Denies hematochezia, Denies change in bowel habits, Denies dyspepsia and Denies nausea Denies hematuria and Denies dysuria Musc Denies abnormal gait, Denies myalgias, Denies arthralgias, Denies numbness and Denies tingling Skin/Breast Denies rash, Denies unusual bruising and Denies wounds Neuro Denies abnormal gait, Denies dizziness, Denies headache(s), Denies memory loss, Denies numbness, Denies Sensory deficit (Neuro), Denies tingling and Denies weakness Psych Denies anxiety, Denies depression and Denies memory loss Endo Denies cold intolerance, Denies fatigue, Denies heat intolerance, Denies polydipsia and Denies polyuria Andrey/Lymph Denies easy bleeding and Denies easy bruising Aller/Immun Denies wheezing Physical exam (Primary Care) Vital Signs: Last Vital Signs Pulse 74 11/12/23 11:02 BP 140/78 H 11/12/23 11:02 Pulse Ox 97 11/12/23 11:02 Oxygen Delivery Method Room Air 11/12/23 11:02 BMI result Body Mass Index 24.2 Tobacco/Smoking Status: Tobacco use Status Tobacco use date assessed 11/12/23 11/12/23 11:06 Patient Tobacco Use Status Never used Tobacco 11/12/23 11:01 e-Cigarette/Vaping Use Never Used 11/12/23 11:01 PHQ-9: PHQ-9 Score PHQ-9: Total score 0 11/12/23 11:43 Thrive Assessment: Date of Thrive Assessment Date Thrive assessed 11/12/23 11/12/23 11:06 Const General: no acute distress, well developed, alert and awake Nutritional Appearance: well nourished Orientation/consciousness: patient oriented x3 HENMT Head: Yes normocephalic and Yes atraumatic Ears: hearing grossly normal bilaterally and TM's normal bilaterally General nose exam: Normal external nose present and Normal nares present Mouth: Normal oral and palatal mucosa present and moist mucous membranes Teeth and gingiva: dentition normal Throat: Yes posterior oropharynx normal Eyes General: appearance normal, both eyes and all related structures Pupils: Equal, round and reactive pupils present and Pupil accommodation reflex normal EOM: EOMs intact bilaterally Neck Neck: Yes normal visual inspection, Yes no lymphadenopathy and Yes trachea midline Thyroid: Thyroid normal Carotids: no bruits Lymphatic: no lymphadenopathy noted Chest Chest palpation & inspection: normal inspection of the chest Resp Effort & Inspection: normal respiratory effort Auscultation: clear to auscultation bilaterally Cardio Rate: regular rate Rhythm: regular rhythm Heart sounds: S1 normal heart sound present, S2 normal heart sound present, no gallops, Murmur heart sound present and no rubs Bruits: no abdominal aortic bruits and no carotid bruits GI Palpation (GI): No Abdominal aortic bruit present, Soft to palpation, nontender, No hepatosplenomegaly present and No Rebound tenderness present Auscultation: normal bowel sounds General: Yes no CVA tenderness Back/Spine/Pelvis Back: no CVA tenderness Cervical Spine: cervical ROM normal and No Cervical spine tenderness Thoracic/Lumbar Spine: thoraco-lumbar ROM normal, No pain with thoraco-lumbar R OM, No thoracic spinal tenderness and No lumbar spinal tenderness Skin Lesions: no lesions Rashes: no rashes Trauma: no lacerations or abrasions Wounds: no wounds Nails: normal Neuro General: patient oriented x3 Cranial nerves: Yes Equal, round and reactive pupils present Cognition (Neuro): normal cognition Gait exam (Neuro): Normal gait present Motor exam (neuro): 5/5 motor strength present throughout Sensory Exam: No Sensory deficit (Neuro) Deep tendon reflexes (DTR's): Right patellar reflex intensity grade: 2+ and Left patellar reflex intensity grade: 2+ Extrem General: Yes normal to inspection and No edema Psych Appearance: grossly normal Affect: normal affect Attitude: cooperative Thought process: Normal thought process present Results AMB Hemoglobin A1c AMB Hemoglobin A1c 5.9 % Last Edit by Elvi Mejia MA on 11/12/23 11:36 Results Reviewed Results Reviewed: Laboratory Last Values Hgb A1c (Clinic) 5.9 % (4.0-6.0) 11/12/23 11:09 Assessment and Plan Assessment & Plan (1) Essential hypertension: Code(s): I10 - Essential (primary) hypertension Plan: Blood?pressure?is?little?elevated?but?she?is?just?getting?over?cold.??G oal?is?less?than?140/90 Continue?current?medications She?will?let?me?know?if?her?blood?pressures?are?high?at?home. (2) Diet-controlled diabetes mellitus: Code(s): E11.9 - Type 2 diabetes mellitus without complications Plan: A1c?climbed?from?5.2%?to?5.9%.??Goal?is?less?than?7.0% Continue?diet?control Work?at?diet?lower?in?sugars?and?starches.??Encouraged?exercise?and?weight?loss (3) Hyperlipidemia: Code(s): E78.5 - Hyperlipidemia, unspecified Plan: She?is?on?atorvastatin?10?mg?daily Cholesterol?is?controlled Continue?current?medication (4) Asymptomatic bacteriuria: Code(s): R82.71 - Bacteriuria Plan: Denies?any?symptoms Increase?hydration (5) Cardiac murmur: Code(s): R01.1 - Cardiac murmur, unspecified Plan: New/unknown?systolic?murmur?2/6?heard?over?aortic?region Check?ultrasound (6) Screening for colon cancer: Code(s): Z12.11 - Encounter for screening for malignant neoplasm of colon Plan: Followed?by? Colonoscopy?in?2020?and?she?will?follow-up?in?2030?for last?colonoscopy (7) Screening for osteoporosis: Code(s): Z13.820 - Encounter for screening for osteoporosis Plan: Due?for?bone?density?testing-ordered (8) Breast cancer screening by mammogram: Code(s): Z12.31 - Encounter for screening mammogram for malignant neoplasm of breast Plan: Last?mammogram?was?negative Order?is?in?for?her?next?mammogram (9) Annual physical exam: Code(s): Z00.00 - Encounter for general adult medical examination without abnormal findings Plan: 73-year-old?female?presents?for?complete?physical?exam Encouraged?healthy?diet?with?active?lifestyle?and?plenty?of?exercise Orders: Orders AMB Hemoglobin A1c Today E11.9 - Type 2 diabetes mellitus without complications CA echo transthoracic complete Today R01.1 - Cardiac murmur, unspecified XR DEXA axial skeleton Today M81.0 - Age-related osteoporosis without current pathological fracture MM tomosynthesis screening BI Today Z12.31 - Encounter for screening mammogram f or malignant neoplasm of breast Coding Level of Care Code Est Pt Level 4 (40386) Diagnoses Essential hypertension I10 Diet-controlled diabetes mellitus E11.9 Hyperlipidemia E78.5 Asymptomatic bacteriuria R82.71 Cardiac murmur R01.1 Screening for colon cancer Z12.11 Screening for osteoporosis Z13.820 Breast cancer screening by mammogram Z12.31 Annual physical exam Z00.00
[2023-11-12 11:02] VITALS: BP 140/78; PULSE 74; O2SAT 97; BMI 24.2
== END 2023-11-12 12:25 | disposition home or self-care (01) ==
PROVIDERS: PCP Family Medicine; Visit Provider Family Medicine
DX: I10 Essential (primary) hypertension (principal); E11.9 Type 2 diabetes mellitus without complications; E78.5 Hyperlipidemia, unspecified; R82.71 Bacteriuria; R01.1 Cardiac murmur, unspecified; Z12.11 Encounter for screening for malignant neoplasm of colon; Z13.820 Encounter for screening for osteoporosis; Z12.31 Encounter for screening mammogram for malignant neoplasm of breast; Z00.00 Encounter for general adult medical examination without abnormal findings
CPT/HCPCS: 83036; 99214

== ENCOUNTER → 2023-12-19 07:45 | Outpatient (REF) | payer MEDICARE, BC, SELFPAY ==
--- NOTE | ~2023-12-19 | MM_ITS ---
EXAMINATION: BONE DENSITOMETRY CLINICAL INDICATION: Age-related osteoporosis without current pathological fracture. COMPARISON: This is the patient's baseline examination. TECHNIQUE: Using a [employer] DXA System (software version: 13.1) manufactured by [employer], dual-energy x-ray absorptiometry was performed of the lumbar spine and left hip. The images are of good technical quality. Summary results are attached. FINDINGS: AP SPINE L1-L4: BMD 1.223 g/cm2, Z-score 2.1, T-score 0.4, normal. LEFT FEMUR, NECK: BMD 1.067 g/cm2, Z-score 2.1, T-score 0.2, normal. LEFT FEMUR, TOTAL: BMD 1.023 g/cm2, Z-score 1.8, T-score 0.1, normal. IDENTIFIED RISK FACTORS: Low calcium intake. Parental hip fracture. Secondary osteoporosis (intestinal or bowel disease). Thiazide. Menopause. Hysterectomy. Bilateral oophorectomy. HISTORY OF FRACTURE: None listed. MEDICATIONS: ERT/SERMS. MM/XR DEXA axial skeleton IMPRESSION: 1. DIAGNOSIS: Normal bone density based on the lowest T-score value of 0.1 in the total femur applying World Health Organization criteria. 2. 10-YEAR FRACTURE RISK PREDICTION, FRAX: According to the guidelines, FRAX calculation should only be performed on patients in the osteopenia bone density category.?Therefore, FRAX was not performed on this patient.? 3. Treatment Recommendations: NOF guidelines recommend consideration for treatment in postmenopausal women and men age 50 and older presenting with the following: -A hip or vertebral (clinical or morphometric) fracture. -T-score less than or equal to -2.5 at the femoral neck or spine after appropriate evaluation to exclude secondary causes. -Low bone mass at the hip or spine and a 10-year fracture probability by FRAX of greater than or equal to 3% for hip fracture or greater than or equal to 20% for major osteoporotic fracture based on the [place] adapted WHO algorithm. 4. Other Recommendations: All treatment decisions require clinical judgment and consideration of individual patient factors, including patient preferences, comorbidities, previous drug use, risk factors not captured in the FRAX model (e.g. frailty, falls, vitamin D deficiency, increased bone turnover, interval significant decline in bone density) and possible under or overestimation of fracture risk by FRAX. FUTURE SCAN RECOMMENDATION: People with diagnosed cases of osteoporosis or at high risk for fracture should have regular bone mineral density tests. For patients eligible for Medicare, routine testing is allowed once every 2 years. The testing frequency can be increased to one year for patients who have rapidly progressing disease, those who are receiving or discontinuing medical therapy to restore bone mass, or have additional risk factors.
--- NOTE | 2023-12-19 07:50 | CA_ITS ---
Transthoracic Echocardiogram Patient (Last, First, Middle): Jessica Plascencia A Gender: Female Date of : 1950 Age: 73 Procedure Date: 12/19/2023 Procedure Type: Transthoracic Echocardiogram Location: OP Height: 165. cm Weight: 63.5 kg BSA: 1.70 m2 Heart Rate: 62 bpm BP: 172 / 75 mmHg Buttonholer: RAINER Referring MD: Easton Mari MD Symptoms: R01.1 - Cardiac murmur, unspecified Study Quality: Fair ECG Rhythm: Sinus Conclusions: - The left ventricular systolic function is normal. The visually estimated ejection fraction is between 60-65%. - There is mild calcification of the aortic valve. - There is mild mitral annular calcification. Findings Left Ventricle Normal left ventricular cavity size. There is normal left ventricular wall thickness. The left ventricular systolic function is normal. The visually estimated ejection fraction is between 60-65%. There is no evidence of regional wall motion abnormalities. Diastolic function is normal for age. LV peak GLS -19.5%. Right Ventricle Normal right ventricular cavity size and systolic function. Atria Both atria are normal in size. Aortic Valve There is a normal trileaflet aortic valve. There is mild calcification of the aortic valve. There is no aortic valve stenosis. There is no aortic valve regurgitation. Mitral Valve There is mild mitral annular calcification. There is trace mitral valve regurgitation. There is no mitral valve stenosis. Pulmonic Valve The pulmonic valve is likely normal. Tricuspid Valve Normal tricuspid valve structure. There is trace tricuspid valve regurgitation. There is no evidence of pulmonary hypertension. Great Vessels The asc aorta is normal in size. Venous The inferior vena cava is normal in size and collapses greater than 50% with inspiration. Pericardium/Pleural There is no evidence of pericardial effusion. Prior Study Comparison No prior study available for comparison. Measurements 2D Linear Measurements IVSd: 0.98 0.6-0.9/0.6-1.0 cm LVIDd: 3.79 3.9-5.3/4.2-5.9 cm LVIDd Index: 2.23 2.4-3.2/2.2-3.1 cm/m2 LVIDs: 2.27 2.0-3.6 cm LVPWd: 1.15 0.7-1.1 cm LA Diam: 3.50 2.7-3.8/3.0-4.0 cm LAIDs Index: 2.06 1.5-2.3 cm/m2 LV Mass: 159.37 67-162/88-224 g LV Mass Index: 93.75 43-95/49-115 g/m2 LVOT Diam: 1.90 3.0+(-)1.3 cm 2D Systolic Function EF 4C: 61.80 >55% EF 2C: 76.40 >55% EF BiP: 70.20 >55% Mitral Valve MV Pk E: 0.95 MV PK A: 0.91 MV Decel Time: 188.00 E/A: 1.00 E'Lateral: 9.25 E'Medial: 6.96 E/E' Med: 13.60 E/E' Lat: 10.20 PHT: 55.00 MVA PHT: 4.00 Decel Person: 5.03 Aortic Valve AoV Pk Cory: 1.77 AoV Mn Cory: 1.31 AoV VTI: 0.46 AoV Pk Grad: 13.00 Aov Mn Grad: 8.00 HARLEY Cont.VTI: 1.79 LVOT LVOT Pk Cory: 1.29 LVOT Mn Cory: 0.84 LVOT VTI: 0.29 LVOT Pk Grad: 7.00 LVOT Mn Grad: 3.00 LVOT Diam: 1.90 LVOT Area: 2.84 Diastolic Function MV Pk E: 0.95 MV Pk A: 0.91 E/A: 1.00 E'Medial: 6.96 E/E' Med: 13.60 E' Laterial: 9.25 E/E' Lat: 10.20 Right Ventricle TAPSE (mm): 24.80 TVS' Cory: 10.00 Tricuspid Valve TR Pk Cory: 1.98 TR Pk Grad: 16.00 RA Press: 3.00 RVSP: 19.00 Great Vessels Aorta Sinus of Valsalva: 3.30 2.0-3.5 cm Ao Asc: 3.20 2.1-3.4 cm Pulmonary Valve PV Pk Cory: 1.15 Peak PV Grad: 5.00 Updated in Other Vendor System with Status of Final Eulogio Roman MD electronically signed on 12/20/2023 2:40:44 PM with status of Final
== END ==
LOC: HO.CARD 07:45
PROVIDERS: PCP Family Medicine; Visit Provider Internal Medicine
DX: Z13.820 Encounter for screening for osteoporosis (principal); R01.1 Cardiac murmur, unspecified; M81.0 Age-related osteoporosis without current pathological fracture
CPT/HCPCS: 77080; 93306; 93356

== ENCOUNTER → 2023-12-19 07:50 | Outpatient (BNV) | payer MEDICARE, BC, SELFPAY | PROVIDERS: PCP Family Medicine; Visit Provider Internal Medicine | DX: I35.8 Other nonrheumatic aortic valve disorders (principal); I34.81 Nonrheumatic mitral (valve) annulus calcification | CPT/HCPCS: 93306; 93356 ==

== ENCOUNTER 2024-01-14 10:35 | Outpatient (AMB) | payer MEDICARE, BC, SELFPAY ==
[2024-01-14 10:49] VITALS: BP 120/62; PULSE 65; O2SAT 99; BMI 24.7
--- NOTE | 2024-01-14 10:49 | MHC.PC.OV ---
Vital Signs 01/14/24 10:49 Height 5 ft 4 in Weight 144 lb BMI 24.7 BP 120/62 Blood Pressure Location Lt brachial Position Sitting Pulse 65 Pulse Source Pulse Oximeter Pulse Oximetry (%) 99 Oxygen Delivery Method Room Air Intake Visit Reasons: f/u labs Intake Note: Patient is here to follow up on her bone density results today. Allergies No Known Allergies [No Known Allergies*] Allergy (Verified 01/14/24 10:53) Tobacco use date assessed: 01/14/24 Fall risk assessment: No Falls in past year Last assessed Fall Risk: 01/14/24 Dental Screening Dental Screen Date: 11/12/23 HPI f/u labs HPI Details 73 y/o female presents to f/u labs. Recent bone density test was normal. Blood pressure today 120/62. She is on lisinopril 10mg HCTZ 25mg daily. Echocardiogram 12/19/23 shows mild calcification of the aortic valve. [facility] Medical History COVID-19 vaccine administered History of diverticulitis Elevated cholesterol GERD (gastroesophageal reflux disease) Diabetes HTN (hypertension) Surgical History Hx of cataract extraction H/O colonoscopy Hx of colectomy Hx of breast biopsy Hx of hysterectomy Hx of section Social History Housing: House Patient Tobacco Use Status: Never used Tobacco e-Cigarette/Vaping Use: Never Used Second Hand Smoke Exposure: No service: No Current occupational status: retired Current occupational exposures/hazards: No Cognitive needs: No Hearing needs: No Vision needs: No Questionnaire Thrive Questionnaire Date Thrive assessed: 11/12/23 TRUE-7 AMB Questionnaire TRUE-7 Date TRUE - 7 assessed: 10/07/22 Source: Developed by Drs. Jamil Templeton, Valery Bedoya, Leandro Cali and colleagues, with an educational halle from [employer]. Review of Systems Const Denies chills, Denies fatigue, Denies fever(s), Denies headache(s) and Denies weakness ENT Denies dizziness and Denies headache(s) Card Denies chest pain, Denies lightheadedness, Denies dyspnea and Denies other (Palpitations) Resp Denies cough, Denies dyspnea, Denies wheezing and Denies other ( shortness of breath) Musc Denies numbness and Denies tingling Neuro Denies dizziness, Denies headache(s), Denies numbness, Denies tingling, Denies paresthesias and Denies weakness Psych Denies anxiety and Denies depression Endo Denies fatigue Aller/Immun Denies wheezing Physical exam (Primary Care) Vital Signs: Last Vital Signs Pulse 65 01/14/24 10:49 BP 120/62 01/14/24 10:49 Pulse Ox 99 01/14/24 10:49 Oxygen Delivery Method Room Air 01/14/24 10:49 BMI result Body Mass Index 24.7 Tobacco/Smoking Status: Tobacco use Status Tobacco use date assessed 01/14/24 01/14/24 10:55 Patient Tobacco Use Status Never used Tobacco 01/14/24 10:51 e-Cigarette/Vaping Use Never Used 01/14/24 10:51 Thrive Assessment: Date of Thrive Assessment Date Thrive assessed 11/12/23 01/14/24 10:51 Const General: no acute distress and well developed Nutritional Appearance: well nourished Orientation/consciousness: patient oriented x3 HENMT Head: Yes normocephalic and Yes atraumatic Eyes General: appearance normal, both eyes and all related structures Pupils: Equal, round and reactive pupils present EOM: EOMs intact bilaterally Resp Effort & Inspection: normal respiratory effort Auscultation: clear to auscultation bilaterally Cardio Rate: regular rate Rhythm: regular rhythm Heart sounds: S1 normal heart sound present, S2 normal heart sound present, no gallops, Murmur heart sound present and no rubs Neuro General: patient oriented x3 and gait normal Cranial nerves: Yes Equal, round and reactive pupils present Psych Affect: normal affect Assessment and Plan Assessment & Plan (1) Essential hypertension: Code(s): I10 - Essential (primary) hypertension Plan: Blood?pressure?shows?good?control?today.??Goal?is?less?than?140/90 Her?log?of?blood?pressures?at?home?also?shows?good?control. Continue?current?medications (2) Cardiac murmur: Code(s): R01.1 - Cardiac murmur, unspecified Plan: Echocardiogram?showed?mild?annular?calcification Will?follow?murmur?clinically?in?repeat?echo?in?1-2?years.??Sooner?if?changes?clinically. (3) Screening for osteoporosis: Code(s): Z13.820 - Encounter for screening for osteoporosis Plan: Bone?density?was?normal Coding Level of Care Code Est Pt Level 3 (56873) Diagnoses Essential hypertension I10 Cardiac murmur R01.1 Screening for osteoporosis Z13.820
== END 2024-01-14 11:16 | disposition home or self-care (01) ==
PROVIDERS: PCP Family Medicine; Visit Provider Family Medicine
DX: I10 Essential (primary) hypertension (principal); R01.1 Cardiac murmur, unspecified; Z13.820 Encounter for screening for osteoporosis
CPT/HCPCS: 99213

== ENCOUNTER 2024-03-15 07:12 | Outpatient (REF) | payer MEDICARE, BC, SELFPAY | END 2024-03-15 07:13 | disposition home or self-care (01) | LOC: HO.MAMMO 07:12 | PROVIDERS: PCP Family Medicine; Visit Provider Family Medicine | DX: Z12.31 Encounter for screening mammogram for malignant neoplasm of breast (principal) | CPT/HCPCS: 77063; 77067 ==

== ENCOUNTER → 2024-03-15 07:30 | Outpatient (BNV) | payer MEDICARE, BC, SELFPAY | PROVIDERS: PCP Family Medicine; Visit Provider Radiology Diagnostic Radiology | DX: Z12.31 Encounter for screening mammogram for malignant neoplasm of breast (principal) | CPT/HCPCS: 77063; 77067 ==

== ENCOUNTER 2024-05-28 11:30 | Outpatient (REF) | payer MEDICARE, BC, SELFPAY ==
[2024-05-28 14:44] LABS: Appearance Urine Clear; Color Urine Dark Yellow; Glucose Urine UA Negative (Negative); Leukocyte Esterase Urine Small (1+) (Negative); Nitrite Urine Negative (Negative); UMIC TRIGGER UA YES; Urine Blood Negative (Negative); Urine Ketones Trace mg/dL (Negative); Urine Protein Negative (Neg-Trace)
[2024-05-28 15:00] LABS: Bacteria Urine None Seen (None Seen); RBC Urine 0-2 /HPF (0-2); WBC Urine 0-5 /HPF (0-5)
== END 2024-05-28 11:31 | disposition home or self-care (01) ==
LOC: HO.WFDLDS 11:30
PROVIDERS: Visit Provider Family Medicine
DX: Z00.00 Encounter for general adult medical examination without abnormal findings (principal)
CPT/HCPCS: 81001

== ENCOUNTER 2024-06-01 08:54 | Outpatient (AMB) | payer MEDICARE, BC, SELFPAY ==
--- NOTE | 2024-06-01 09:10 | MHC.PC.OV ---
Vital Signs 06/01/24 09:12 Height 5 ft 4 in Weight 142 lb BMI 24.4 BP 130/60 Blood Pressure Location Rt brachial Position Sitting Respiration 18 Pulse 64 Pulse Source Pulse Oximeter Temp 97.5 F Temp Source Tympanic Pulse Oximetry (%) 98 Oxygen Delivery Method Room Air Intake Visit Reasons: f/u hypertension Intake Note: follow up on HTN Allergies No Known Allergies [No Known Allergies*] Allergy (Verified 06/01/24 09:10) Tobacco use date assessed: 01/14/24 Dental Screening Dental Screen Date: 11/12/23 HPI f/u hypertension HPI Details 73 y/o female presents to f/u hypertension. Blood pressure today 130/60. She is on lisinopril 10mg, hydrochlorothiazide 25mg daily. She is tolerating her meds well. HPI Comments History of Present Illness Details Documentation assistance for Easton Mari MD, was provided by Jimbo Singh,? Color Print Inspector on 06/01/2024 at 9:23 AM EST. I, Dr. Mari, have read, observed, and verified documentation. PFSH Medical History COVID-19 vaccine administered History of diverticulitis Elevated cholesterol GERD (gastroesophageal reflux disease) Diabetes HTN (hypertension) Surgical History Hx of cataract extraction H/O colonoscopy Hx of colectomy Hx of breast biopsy Hx of hysterectomy Hx of section Social History Housing: House Patient Tobacco Use Status: Never used Tobacco e-Cigarette/Vaping Use: Never Used Second Hand Smoke Exposure: No service: No Current occupational status: retired Current occupational exposures/hazards: No Cognitive needs: No Hearing needs: No Vision needs: No Questionnaire Thrive Questionnaire Date Thrive assessed: 11/12/23 TRUE-7 AMB Questionnaire TRUE-7 Date TRUE - 7 assessed: 10/07/22 Source: Developed by Drs. Jamil Templeton, Valery Bedoya, Leandro Cali and colleagues, with an educational halle from [employer]. Review of Systems Const Denies chills, Denies fatigue, Denies fever(s), Denies headache(s) and Denies weakness ENT Denies dizziness and Denies headache(s) Card Denies dyspnea Resp Denies cough, Denies dyspnea, Denies wheezing and Denies other (shortness of breath) Musc Denies numbness and Denies tingling Neuro Denies dizziness, Denies headache(s), Denies numbness, Denies tingling and Denies weakness Psych Denies anxiety and Denies depression Endo Denies fatigue Aller/Immun Denies wheezing Physical exam (Primary Care) Vital Signs: Last Vital Signs Temp 97.5 F 06/01/24 09:12 Pulse 64 06/01/24 09:12 Resp 18 06/01/24 09:12 BP 130/60 06/01/24 09:12 Pulse Ox 98 06/01/24 09:12 Oxygen Delivery Method Room Air 06/01/24 09:12 BMI result Body Mass Index 24.4 Tobacco/Smoking Status: Tobacco use Status Tobacco use date assessed 01/14/24 06/01/24 09:15 Patient Tobacco Use Status Never used Tobacco 06/01/24 09:15 e-Cigarette/Vaping Use Never Used 06/01/24 09:15 Thrive Assessment: Date of Thrive Assessment Date Thrive assessed 11/12/23 06/01/24 09:15 Const General: well developed; No acute distress Nutritional Appearance: well nourished Orientation/consciousness: patient oriented x3 HENMT Head: Yes normocephalic and Yes atraumatic Eyes General: appearance normal, both eyes and all related structures Pupils: Equal, round and reactive pupils present EOM: EOMs intact bilaterally Resp Effort & Inspection: normal respiratory effort Auscultation: clear to auscultation bilaterally Cardio Rate: regular rate Rhythm: regular rhythm Heart sounds: S1 normal heart sound present, S2 normal heart sound present, no gallops, Murmur heart sound present (Faint) and no rubs Neuro General: patient oriented x3 and gait normal Cranial nerves: Yes Equal, round and reactive pupils present Psych Affect: normal affect Assessment and Plan Assessment & Plan (1) Essential hypertension: Code(s): I10 - Essential (primary) hypertension Plan: Blood?pressure?is?controlled.??Goal?is?less?than?140/90 No?change?to?blood?pressure?medication?today.??Blood?pressure?is?a?little?higher?than?her?baseline.??Encouraged?diet?low?in?salt/sodium, exercise?and?weight?control. Orders: Orders Comprehensive [place]. Panel Fast Today Z00.00 - Encounter for general adult medical examination without abnormal findings UA and rflx microscopic Today Z00.00 - Encounter for general adult medical examination without abnormal findings Complete Blood Count Auto Diff Today Z00.00 - Encounter for general adult medical examination without abnormal findings Lipid Panel Today Z00.00 - Encounter for general adult medical examination without abnormal findings Microalbumin, Random (w Creat) Today I10 - Essential (primary) hypertension TSH reflex Free T4 Today Z00.00 - Encounter for general adult medical examination without abnormal findings Coding Level of Care Code Est Pt Level 3 (80790) Diagnoses Essential hypertension I10
[2024-06-01 09:12] VITALS: BP 130/60; PULSE 64; RESP 18; TEMP 36.4; O2SAT 98; BMI 24.4
== END 2024-06-01 10:03 | disposition home or self-care (01) ==
PROVIDERS: PCP Family Medicine; Visit Provider Family Medicine
DX: I10 Essential (primary) hypertension (principal)
CPT/HCPCS: 99213

== ENCOUNTER 2024-12-20 08:58 | Outpatient (REF) | payer MEDICARE, BC, SELFPAY ==
[2024-12-20 11:33] LABS: MANUAL DIFF FLAG NO
[2024-12-20 11:57] LABS: Basophils Absolute Auto 0.1 X10*3/uL (0.0-0.2); Basophils Percent Auto 2.4 % (0-2); Eosinophils Absolute Auto 0.2 X10*3/uL (0.0-0.4); Eosinophils Percent Auto 4.5 % (0-4); Hematocrit 37.6 % (37.0-47.0); Hemoglobin 12.4 g/dl (12.0-16.0); Imm Gran Abs Auto 0.01 X10*3/uL (0.00-0.03); Imm Gran Pct Auto 0.2 % (0.0-0.4); Lymphocytes Absolute Auto 1.8 X10*3/uL (1.2-4.9); Lymphocytes Percent Auto 42.6 % (20-40); Mean Corpuscular Hemoglobin 30.1 pg (27.0-33.0); Mean Corpuscular Volume 91.3 fL (80.0-98.0); Mean Platelet Volume 10.5 fL (9.4-12.3); Monocytes Absolute Auto 0.4 X10*3/uL (0.1-1.2); Monocytes Percent Auto 8.5 % (2-11); Neutrophils Absolute Auto 1.8 x10*3/uL (2.0-8.3); Neutrophils Percent Auto 41.8 % (45-73); Platelet Count 292 X10*3/uL (160-400); Red Blood Count 4.12 X10*6/uL (4.20-5.50); Red Cell Distribution Width 12.5 % (11.0-16.0); White Blood Count 4.2 X10*3/uL (4.8-10.8)
[2024-12-20 12:08] LABS: Appearance Urine Clear; Color Urine Yellow; Glucose Urine UA Negative (Negative); Leukocyte Esterase Urine Moderate (2+) (Negative); Nitrite Urine Negative (Negative); Specific Gravity - Urine 1.015 (1.005-1.025); UMIC TRIGGER UA YES; Urine Blood Negative (Negative); Urine Ketones Negative (Negative); Urine Protein Negative (Neg-Trace)
[2024-12-20 12:13] LABS: Bacteria Urine None Seen (None Seen); Hyaline Casts Urine 0-2 /LPF (0-2); RBC Urine 0-2 /HPF (0-2); Squamous Epithelial Cell Urine 0-2 /HPF (0-2); WBC Urine 21-50 /HPF (0-5)
[2024-12-20 12:26] LABS: Alanine Aminotransferase 32 U/L (0-31); Albumin Level 4.5 g/dL (3.5-5.0); Alkaline Phosphatase 29 U/L (39-117); Anion Gap 13 (12-20); Aspartate Amino Transferase 35 U/L (5-31); Bilirubin Total 0.5 mg/dL (0.0-1.0); Blood Urea Nitrogen 17 mg/dL (9-16); Carbon Dioxide 28 mmol/L (22-29); Chloride 105 mmol/L (96-108); Cholesterol 159 mg/dL (<200); Estimated Glomerular Filt Rate 51; Glucose Fasting 92 mg/dL (60-99); HDL Cholesterol 71 mg/dL (>40); LDL Cholesterol Calculated 76 mg/dL (<100); Potassium 4.5 mmol/L (3.3-5.1); Sodium 141 mmol/L (135-145); Total Protein 6.7 g/dL (6.5-8.0); Triglycerides 64 mg/dL (<150)
[2024-12-20 12:27] LABS: TSH reflex Free T4 1.44 uIU/mL (0.32-4.0)
[2024-12-20 12:29] LABS: Creatinine Urine 145.33 mg/dL; Microalbum/Creatinine Ratio Ur 19.2 ug/mg cr (<30)
== END 2024-12-20 08:59 | disposition home or self-care (01) ==
LOC: HO.WFDLDS 08:58
PROVIDERS: Visit Provider Family Medicine
DX: Z00.00 Encounter for general adult medical examination without abnormal findings (principal); I10 Essential (primary) hypertension
CPT/HCPCS: 36415; 80053; 80061; 81001; 81003; 82043; 82570; 84443; 85025

== ENCOUNTER 2024-12-23 08:39 | Outpatient (AMB) | payer MEDICARE, BC, SELFPAY ==
--- NOTE | 2024-12-23 08:53 | MHC.PC.OV ---
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 Required: No Is last menstrual period known: No Post menopausal: Yes Patient : No Allergies No Known Allergies [No Known Allergies*] Allergy (Verified 12/23/24 08:54) Medication List - Last Reconciled 12/23/24 by Easton Mari MD atorvastatin 10 mg PO DAILY 90 days estradiol 0.01%(0.1mg/gram) 1 g vaginal DAILY fenofibrate nanocrystallized 145 mg PO DAILY 90 days hydrochlorothiazide 25 mg PO DAILY 90 days lisinopril 10 mg PO DAILY 90 days omeprazole 20 mg PO DAILY 90 days Tobacco use date assessed: 12/23/24 Fall risk assessment: No Falls in past year Last assessed Fall Risk: 12/23/24 Dental Screening Dental Screen Date: 12/23/24 Did you have a dental visit in the last 12 months?: Yes Did you have a dental problem in the last 6 months where you did not have access to dental care?: No Was dental information given to patient?: No HPI Extended exam with f/u labs and health maint HPI Details 74 y/o female presents for an extended exam with f/u labs and health maintenance. Labs drawn 12/20/24. Reviewed labs with pt. RBC mildly low at 4.12. Elevated liver enzymes - AST 35, ALT 32. Triglycerides 64. TC 159. LDL 76. HDL 71. She is on artovastatin 10mg daily. Blood pressure today 120/70, 67p. She is on lisinopril 10mg, HCTZ 25mg daily. A1c today 5.6%. Diet controlled diabetes. [facility] Medical History COVID-19 vaccine administered History of diverticulitis Elevated cholesterol GERD (gastroesophageal reflux disease) Diabetes HTN (hypertension) Surgical History Hx of cataract extraction H/O colonoscopy Hx of colectomy Hx of breast biopsy Hx of hysterectomy Hx of section Social History Housing: House Patient Tobacco Use Status: Never used Tobacco e-Cigarette/Vaping Use: Never Used Second Hand Smoke Exposure: No Patient : No service: No Current occupational status: retired Current occupational exposures/hazards: No Cognitive needs: No Hearing needs: No Vision needs: No Questionnaire PHQ-9 Over the last 2 weeks, how often have you been bothered by any of the following problems? 1. Little interest or pleasure in doing things: not at all 2. Feeling down, depressed, or hopeless: not at all 3. Trouble falling or staying asleep, or sleeping too much: not at all 4. Feeling tired or having little energy: not at all 5. Poor appetite or overeating: not at all 6. Feeling bad about yourself - or that you are a failure or have let yourself or your family down: not at all 7. Trouble concentrating on things, such as reading the newspaper or watching television: not at all 8. Moving or speaking so slowly that other people could have noticed. Or the opposite - being so fidgety or restless that you have been moving around a lot more than usual: not at all 9. Thoughts that you would be better off or of hurting yourself in some way: not at all Total score: 0 Depression Screening Interpretation: Negative Depression Screening Done: Yes 85007 - PHQ-9 Billing: Yes Source: Developed by Drs. Jamil Templeton, Valery Bedoya, Leandro Cali and colleagues, with an educational halle from [employer]. Thrive Questionnaire Date Thrive assessed: 12/23/24 I am a: Patient What is your living situation today?: I have a steady place to live Within the past 12 months, did the food you bought not last and you didn't have the money to get more?: Never true Within the past 12 months, did you worry whether your food would run out before you got money to buy more?: Never true Do you have trouble paying for medicines?: No Do you have trouble getting transportation to medical appointments?: No Do you have trouble paying your heating and electricity bill?: No Do you have trouble taking care of your child, family member or friend?: No Do you have trouble with day-to-day activities such as bathing, preparing meals, shopping, managing finances, etc.?: No Are you currently unemployed and looking for a job?: No Are you interested in more education?: No Please select the resources that you would like help with: None Currently or been in a relationship where the following occur: No concerns reported THRIVE Score: 0 AUDIT C Alcohol Use Questionnaire (AUDIT-C) 1. How often do you have a drink containing alcohol?: Monthly or less 2. How many drinks containing alcohol do you have on a typical day when you are drinking?: 1 or 2 3. How often do you have six or more drinks on one occasion?: Never Total Score: 1 Score Reviewed/Action Taken: Yes TRUE-7 AMB Questionnaire TRUE-7 Date TRUE - 7 assessed: 12/23/24 Feeling nervous, anxious, or on edge: 0 = Not at all Not being able to stop or control worryin = Not at all Worrying too much about different things: 0 = Not at all Trouble relaxin = Not at all Being so restless that it is hard to sit still: 0 = Not at all Becoming easily annoyed or irritable: 0 = Not at all Feeling afraid as if something awful might happen: 0 = Not at all Total TRUE-7 score (0-4 normal; 5-9 mild; 10-14 moderate; 15-21 severe): 0 Source: Developed by Drs. Jamil Templeton, Valery Bedoya, Leandro Cali and colleagues, with an educational halle from [employer]. TRUE-7 Assessment Billing TRUE-7 Assessment Tool: TRUE-7 Assessment 08643 Review of Systems Const Denies chills, Denies fatigue, Denies fever(s), Denies headache(s) and Denies weakness Eyes Denies change in vision ENT Denies dizziness, Denies headache(s), Denies hearing loss, Denies nasal congestion, Denies sinus pain, Denies sinus pressure and Denies sore throat Card Denies chest pain, Denies lightheadedness, Denies dyspnea and Denies other (palpitations) Resp Denies cough, Denies dyspnea and Denies wheezing GI Denies abdominal pain, Denies melena, Denies hematochezia, Denies change in bowel habits, Denies dyspepsia and Denies nausea Denies hematuria and Denies dysuria Musc Denies abnormal gait, Denies myalgias, Denies arthralgias, Denies numbness and Denies tingling Skin/Breast Denies rash, Denies unusual bruising and Denies wounds Neuro Denies abnormal gait, Denies dizziness, Denies headache(s), Denies memory loss, Denies numbness, Denies Sensory deficit (Neuro), Denies tingling and Denies weakness Psych Denies anxiety, Denies depression and Denies memory loss Endo Denies cold intolerance, Denies fatigue, Denies heat intolerance, Denies polydipsia and Denies polyuria Andrey/Lymph Denies easy bleeding and Denies easy bruising Aller/Immun Denies wheezing Physical exam (Primary Care) Vital Signs: Last Vital Signs Temp 98.0 F 12/23/24 08:57 Pulse 67 12/23/24 08:57 Resp 12 12/23/24 08:57 BP 120/70 12/23/24 08:57 Pulse Ox 98 12/23/24 08:57 Oxygen Delivery Method Room Air 12/23/24 08:57 BMI result Body Mass Index 25.3 Tobacco/Smoking Status: Tobacco use Status Tobacco use date assessed 12/23/24 12/23/24 09:00 Patient Tobacco Use Status Never used Tobacco 12/23/24 09:00 e-Cigarette/Vaping Use Never Used 12/23/24 09:00 PHQ-9: PHQ-9 Score PHQ-9: Total score 0 12/23/24 09:00 Depression Screening Interpretation: Negative Thrive Assessment: Date of Thrive Assessment Date Thrive assessed 12/23/24 12/23/24 09:00 Currently or been in a relationship where the following occur: No concerns reported Const General: no acute distress, well developed, alert and awake Nutritional Appearance: well nourished Orientation/consciousness: patient oriented x3 HENMT Head: Yes normocephalic and Yes atraumatic Ears: hearing grossly normal bilaterally and TM's normal bilaterally General nose exam: Normal external nose present and Normal nares present Mouth: Normal oral and palatal mucosa present and moist mucous membranes Teeth and gingiva: dentition normal Throat: Yes posterior oropharynx normal Eyes General: appearance normal, both eyes and all related structures Pupils: Equal, round and reactive pupils present and Pupil accommodation reflex normal EOM: EOMs intact bilaterally Neck Neck: Yes normal visual inspection, Yes no lymphadenopathy and Yes trachea midline Thyroid: Thyroid normal Carotids: no bruits Lymphatic: no lymphadenopathy noted Chest Chest palpation & inspection: normal inspection of the chest Resp Effort & Inspection: normal respiratory effort Auscultation: clear to auscultation bilaterally Cardio Rate: regular rate Rhythm: regular rhythm Heart sounds: S1 normal heart sound present, S2 normal heart sound present, no gallops, no murmurs and no rubs Bruits: no abdominal aortic bruits and no carotid bruits GI Palpation (GI): No Abdominal aortic bruit present, Soft to palpation, nontender, No hepatosplenomegaly present and No Rebound tenderness present Auscultation: normal bowel sounds General: Yes no CVA tenderness Back/Spine/Pelvis Back: no CVA tenderness Cervical Spine: cervical ROM normal and No Cervical spine tenderness Thoracic/Lumbar Spine: thoraco-lumbar ROM normal, No pain with thoraco-lumbar ROM, No thoracic spinal tenderness and No lumbar spinal tenderness Skin Lesions: no lesions Rashes: no rashes Trauma: no lacerations or abrasions Wounds: no wounds Nails: normal Neuro General: patient oriented x3 Cranial nerves: Yes Equal, round and reactive pupils present Cognition (Neuro): normal cognition Gait exam (Neuro): Normal gait present Motor exam (neuro): 5/5 motor strength present throughout Sensory Exam: No Sensory deficit (Neuro) Deep tendon reflexes (DTR's): Right patellar reflex intensity grade: 2+ and Left patellar reflex intensity grade: 2+ Extrem General: Yes normal to inspection and No edema Psych Appearance: grossly normal Affect: normal affect Attitude: cooperative Thought process: Normal thought process present Coding Level of Care Code Est Pt Level 4 (85960) Diagnoses Essential hypertension I10 Hyperlipidemia E78.5 Breast cancer screening by mammogram Z12.31 Diet-controlled diabetes mellitus E11.9 Elevated liver enzymes R74.8 Mild renal insufficiency N28.9 Screening for colon cancer Z12.11 Annual physical exam Z00.00 Additional Codes TRUE-7 Assessment Billing - TRUE-7 Assessment Tool: TRUE-7 Assessment 36693 ([id number]) PHQ-9 - 62653 - PHQ-9 Billing: Yes ([id number]) Assessment & Plan Assessment & Plan (1) Essential hypertension: Code(s): I10 - Essential (primary) hypertension Category: Medical Plan: Blood?pressure?is?controlled.??Goal?is?less?than?140/90 Continue?medication (2) Hyperlipidemia: Code(s): E78.5 - Hyperlipidemia, unspecified Category: Medical Plan: LDL?and?cholesterol?levels?including?triglycerides?are?controlled. Continue?atorvastatin?and?fenofibrate (3) Breast cancer screening by mammogram: Code(s): Z12.31 - Encounter for screening mammogram for malignant neoplasm of breast Category: Medical Plan: Mammogram?in?February Negative?for?malignancy?and?recommended?annual?screening.??She?has?her?next?mammogram?scheduled (4) Diet-controlled diabetes mellitus: Code(s): E11.9 - Type 2 diabetes mellitus without complications Category: Medical Plan: A1c?5.6%.??Good?control. Goal < 7% Continue diabetic?diet (5) Elevated liver enzymes: Code(s): R74.8 - Abnormal levels of other serum enzymes Category: Medical Plan: Mildly?elevated?liver?enzymes She?has had?some?weight?gain. She?notes?that?she?at?completely?quit?alcohol?for?Lent. Does?not?use?much?Tylenol. Encouraged?weight?loss?and?as?above,?encouraged?good?hydration Will?recheck?in?a?couple?months (6) Mild renal insufficiency: Code(s): N28.9 - Disorder of kidney and ureter, unspecified Category: Medical Plan: Mild?renal?insufficiency?noted?on?lab?work?today?with?slight?increase?in?her?creatinine?level?and?mild?decrease?in?GFR. BUN?mildly?elevated?I?suspect?she?may?be?somewhat?dehydrated. Increase?hydration Will?recheck?in?a?few?months. Of?note?she?did?have?a?sister?who?had renal?failure. (7) Screening for colon cancer: Code(s): Z12.11 - Encounter for screening for malignant neoplasm of colon Category: Medical Plan: Patient?had colonoscopy?with??[facility]?in?2020. Will?request?report (8) Annual physical exam: Code(s): Z00.00 - Encounter for general adult medical examination without abnormal findings Category: Medical Plan: 74-year-old?female?presents?for?complete?physical?exam Encouraged?healthy?diet?with?active?lifestyle?and?plenty?of?exercise Orders: Orders Comprehensive Met. Panel Today R74.8 - Abnormal levels of other serum enzymes Medications: Refilled hydrochlorothiazide 25 mg PO DAILY 90 days 90 tabs 3RF fenofibrate nanocrystallized 145 mg PO DAILY 90 days 90 tabs 4RF atorvastatin 10 mg PO DAILY 90 days 90 tabs 4RF Z12.11 - Encounter for screening for malignant neoplasm of colon omeprazole 20 mg PO DAILY 90 days 90 caps 4RF lisinopril 10 mg PO DAILY 90 days 90 tabs 4RF estradiol 0.01%(0.1mg/gram) 1 g vaginal DAILY 42.5 grams 3RF Z12.11 - Encounter for screening for malignant neoplasm of colon
[2024-12-23 08:57] VITALS: BP 120/70; PULSE 67; RESP 12; TEMP 36.7; O2SAT 98; BMI 25.3
== END 2024-12-23 09:53 | disposition home or self-care (01) ==
LOC: HO.HMCFM 08:40
PROVIDERS: PCP Family Medicine; Visit Provider Family Medicine
DX: I10 Essential (primary) hypertension (principal); E11.49 Type 2 diabetes mellitus with other diabetic neurological complication; E78.5 Hyperlipidemia, unspecified; Z12.31 Encounter for screening mammogram for malignant neoplasm of breast; R74.8 Abnormal levels of other serum enzymes; N28.9 Disorder of kidney and ureter, unspecified; Z12.11 Encounter for screening for malignant neoplasm of colon

== ENCOUNTER → 2024-12-23 08:39 | Outpatient (BNVA) | payer MEDICARE, BC, SELFPAY | PROVIDERS: PCP Family Medicine; Visit Provider Family Medicine | DX: Z00.01 Encounter for general adult medical examination with abnormal findings (principal); E11.9 Type 2 diabetes mellitus without complications; I10 Essential (primary) hypertension; E78.5 Hyperlipidemia, unspecified; R74.8 Abnormal levels of other serum enzymes; N28.9 Disorder of kidney and ureter, unspecified | CPT/HCPCS: 83036; 96127; 99212 ==

== ENCOUNTER 2025-03-21 07:30 | Outpatient (REF) | payer MEDICARE, BC, SELFPAY ==
--- NOTE | ~2025-03-21 | MM_ITS ---
EXAMINATION: MM SCREENING DIGITAL BREAST TOMOSYNTHESIS, BILATERAL CLINICAL INFORMATION: Screening. Asymptomatic. COMPARISON: Mammography: Comparison is made with available priors TECHNIQUE: Digital breast mammography with tomosynthesis is performed in both the craniocaudal and mediolateral oblique views along with computer-aided detection (CAD). FINDINGS: There are scattered areas of fibroglandular density (ACR BI-RADS breast composition Category b). There are no significant masses, abnormal calcifications, or other abnormalities. MM/MM tomosynthesis screening BI IMPRESSION: No mammographic evidence of malignancy. ASSESSMENT: BI-RADS BI-RADS 1 - Negative RECOMMENDATION: Routine annual mammography screening. 1 year F/U This examination should not preclude the clinical evaluation of a suspicious palpable abnormality. This patient's information was entered into a reminder system with a target due date for their next mammogram. Electronically signed by: Jennifer Arreola DO 03/25/2025 10:19 AM EDVon
--- OUTSIDE RECORDS SUMMARY | 2025-03-21 07:32 | XMS_ITS | Patient Health Record ---
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 Name Role Phone Easton Mari Primary Care Provider UnavailRodrigo Short Jr Unavailable Allergies No Known Allergies Reason For Referral No Information Medications Medication SIG (Take, Route, Frequency, Duration) Notes Start Date End Date Status Apple Cider Vinegar Active Hair Skin Nails - as directed Orally Active Fiber Complete - as directed Orally Active Vitamin C 500 MG as directed Orally Active Turmeric Curcumin - as directed Orally Active Lisinopril 10 MG 1 tablet Orally Once a day Active Ashwagandha Active Omeprazole 20 MG 1 capsule 30 minutes before morning meal Orally Once a day Active hydroCHLOROthiazide 12.5 MG 1 tablet in the morning Orally Once a day Active Fenofibrate 145 MG 1 tablet Orally Once a day for 30 day(s) Active Estradiol Acetate 0.1 MG/24HR as directe d Vaginal as needed Active MiraLax (colon prep) 8.3 oun ce ((238) grams mixed with Gatorade or Crystal Light orally begin at 5:00 p.m. the day before the procedure for 1 day 04/04/2021 Active Atorvastatin Calcium 10 MG 1 tablet Oral ly Once a day for 30 day(s) Active Immunizations Vaccine Route Administration Date Status Comme nts Influenza Unknown 05/30/2020 Administered Social History Tobacco Use: Social History Observation Description Date Details (start date - stop date) Never Smoker NA - NA Tobacco Use/Smoking Question Answer Notes Patient is a nonsmoker Alcohol Screen Question Answer Notes Did you have a drink contain ing alcohol in the past year? Yes How often did you have a dri nk containing alcohol in the past year? 4 or more times a week (4 points) How many drinks did you have on a typical day when you were drinking in the past year? 1 or 2 drinks (0 point) Points 4 Interpretation Positive Problems Problem Type SNOMED Code ICD Code Onset Dates Problem Status W/U Status Risk Notes Problem 818732819 Colon cancer screening (Z12.11) Active confirmed Problem 740744931 Long-term current use of high risk medication other than anticoagulant (Z79.899) Active confirmed Problem [id number] custodial current use of diuretic (Z79.899) Active confirmed Plan Of Treatment Future Test Test Name Order Date COLONOSCOPY 04/04/2021 Insurance Providers Payer Name Payer Address Payer Phone Subscriber Number Group Number Insured Name Patient Relationship to Insured Coverage Start Date Coverage End Date MED[place]ARE OF [place] [address] [facility] [place] [id number] JUDIE JONES Self - patient is the insured [facility] [address] [place] [address] [phone] [id number] JUDIE JONES Self - patient is the insured Medical (General) History Medical History History ICD Code hypertension diet controlled diabetes Elevated cholesterol Gastroesophageal reflux disease Diverticulitis Surgical History Surgery Date(Month/Year) section x2 hysterectomy breast biopsy Sigmoid colectomy
== END 2025-03-21 07:31 | disposition home or self-care (01) ==
LOC: HO.MAMMO 07:30
PROVIDERS: PCP Family Medicine; Visit Provider Family Medicine
DX: Z12.31 Encounter for screening mammogram for malignant neoplasm of breast (principal)
CPT/HCPCS: 77063; 77067

== ENCOUNTER → 2025-03-21 07:45 | Outpatient (BNV) | payer MEDICARE, BC, SELFPAY | PROVIDERS: PCP Family Medicine; Visit Provider Internal Medicine | DX: Z12.31 Encounter for screening mammogram for malignant neoplasm of breast (principal) | CPT/HCPCS: 77063; 77067 ==

== ENCOUNTER 2025-03-25 08:07 | Outpatient (REF) | payer MEDICARE, BC, SELFPAY ==
--- OUTSIDE RECORDS SUMMARY | 2025-03-25 08:11 | XMS_ITS | Patient Health Record ---
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 Name Role Phone Easton Mari Primary Care [...] Problem Status W/U Status Risk Notes Problem 997231655 Colon cancer screening (Z12.11) Active confirmed Problem 402003152 Long-term current use of high risk medication other than anticoagulant (Z79.899) Active confirmed Problem [id number] [facility] current use of diuretic (Z79.899) Active confirmed Plan Of Treatment Future Test Test Name Order Date COLONOSCOPY 04/04/2021 Insurance Providers Payer Name Payer Address Payer Phone Subscriber Number Group Number Insured Name Patient Relationship to Insured Coverage Start Date Coverage End Date [place]ARE OF [place] [address] [facility] [place] [id number] JUDIE JONES Self - patient is the insured [facility] [address] [place] [address] [id number] JUDIE JONES Self - patient is the insured Medical (General) History Medical History History ICD Code hypertension diet controlled diabetes Elevated cholesterol Gastroesophageal reflux disease Diverticulitis Surgical History Surgery Date(Month/Year) section x2 hysterectomy breast biopsy Sigmoid colectomy
[2025-03-25 11:26] LABS: Appearance Urine Clear; Color Urine Yellow; Glucose Urine UA Negative (Negative); Leukocyte Esterase Urine Small (1+) (Negative); Nitrite Urine Negative (Negative); UMIC TRIGGER UA YES; Urine Blood Negative (Negative); Urine Ketones Trace mg/dL (Negative); Urine Protein Negative (Neg-Trace)
[2025-03-25 11:34] LABS: Bacteria Urine None Seen (None Seen); Hyaline Casts Urine 0-2 /LPF (0-2); RBC Urine 0-2 /HPF (0-2)
[2025-03-25 11:58] LABS: Alanine Aminotransferase 24 U/L (0-31); Albumin Level 4.7 g/dL (3.5-5.0); Alkaline Phosphatase 31 U/L (39-117); Anion Gap 14 (12-20); Aspartate Amino Transferase 34 U/L (5-31); Bilirubin Total 0.6 mg/dL (0.0-1.0); Blood Urea Nitrogen 14 mg/dL (9-16); Carbon Dioxide 26 mmol/L (22-29); Chloride 98 mmol/L (96-108); Estimated Glomerular Filt Rate 50; Glucose Random 94 mg/dL (60-115); Potassium 4.1 mmol/L (3.3-5.1); Sodium 134 mmol/L (135-145); Total Protein 6.8 g/dL (6.5-8.0)
== END 2025-03-25 08:08 | disposition home or self-care (01) ==
LOC: HO.WFDLDS 08:07
PROVIDERS: Visit Provider Family Medicine
DX: R74.8 Abnormal levels of other serum enzymes (principal)
CPT/HCPCS: 36415; 80053; 81001; 81003

== ENCOUNTER 2025-03-28 08:33 | Outpatient (AMB) | payer MEDICARE, BC, SELFPAY ==
--- OUTSIDE RECORDS SUMMARY | 2025-03-28 08:44 | XMS_ITS | Patient Health Record ---
Author Organization [facility] Address [address] [place] [address] Care Team Providers Care Glass Washer Name Role Phone Easton Mari Primary Care Provider UnavailRodrigo Short Jr Unavailable [phone] Allergies No Known Allergies Reason For Referral [...] Problem Status W/U Status Risk Notes Problem 291751438 Colon cancer screening (Z12.11) Active confirmed Problem [id number] Long-term current use of high risk medication other than anticoagulant (Z79.899) Active confirmed Problem [id number] senior living current use of diuretic (Z79.899) Active confirmed Plan Of Treatment Future Test Test Name Order Date COLONOSCOPY 04/04/2021 Insurance Providers Payer Name Payer Address Payer Phone Subscriber Number Group Number Insured Name Patient Relationship to Insured Coverage Start Date Coverage End Date MEDICARE OF [place] [address] [facility] [place] BARRY [id number] JUDIE JONES Self - patient is the insured [facility] [address] [place] [address] [phone] [id number] JUDIE JONES Self - patient is the insured Medical (General) History Medical History History ICD Code hypertension diet controlled diabetes Elevated cholesterol Gastroesophageal reflux disease Diverticulitis Surgical History Surgery Date(Month/Year) section x2 hysterectomy breast biopsy Sigmoid colectomy
--- NOTE | 2025-03-28 08:50 | MHC.PC.OV ---
Vital Signs 03/28/25 08:51 Height 5 ft 4 in Weight 150 lb 6 oz BMI 25.8 BP 130/64 Blood Pressure Location Rt brachial Position Sitting Respiration 14 Pulse 71 Pulse Source Pulse Oximeter Temp 98.0 F Temp Source Oral Pulse Oximetry (%) 98 Oxygen Delivery Method Room Air Intake Visit Reasons: f/u labs, chronic conditions Intake Note: patient is scheduled for lab review Phys Therapist Required: No Allergies No Known Allergies (No Known Allergies*) Allergy (Verified 03/28/25 08:51) Medication List - Last Reconciled 03/28/25 by Easton Mari MD atorvastatin 10 mg PO DAILY 90 days estradiol 0.01%(0.1mg/gram) 1 g vaginal DAILY fenofibrate nanocrystallized 145 mg PO DAILY 90 days hydrochlorothiazide 25 mg PO DAILY 90 days lisinopril 10 mg PO DAILY 90 days omeprazole 20 mg PO DAILY 90 days Tobacco use date assessed: 12/23/24 Dental Screening Dental Screen Date: 12/23/24 HPI f/u labs, chronic conditions HPI Details 74 y/o female presents to f/u chronic conditions, labs. Labs drawn 03/25/25. Reviewed labs with pt. Sodium level mildly low at 134 mmol/L. Elevated AST of 34. Creatinine level 1.08. [facility] Medical History COVID-19 vaccine administered History of diverticulitis Elevated cholesterol GERD (gastroesophageal reflux disease) Diabetes HTN (hypertension) Surgical History Hx of cataract extraction H/O colonoscopy Hx of colectomy Hx of breast biopsy Hx of hysterectomy Hx of section Social History Housing: House Patient Tobacco Use Status: Never used Tobacco e-Cigarette/Vaping Use: Never Used Second Hand Smoke Exposure: No service: No Current occupational status: retired Current occupational exposures/hazards: No Cognitive needs: No Hearing needs: No Vision needs: No Questionnaire Thrive Questionnaire Date Thrive assessed: 12/23/24 I am a: Patient What is your living situation today?: I have a steady place to live Within the past 12 months, did the food you bought not last and you didn't have the money to get more?: Never true Within the past 12 months, did you worry whether your food would run out before you got money to buy more?: Never true Do you have trouble paying for medicines?: No Do you have trouble getting transportation to medical appointments?: No Do you have trouble paying your heating and electricity bill?: No Do you have trouble taking care of your child, family member or friend?: No Do you have trouble with day-to-day activities such as bathing, preparing meals, shopping, managing finances, etc.?: No Are you currently unemployed and looking for a job?: No Are you interested in more education?: No Please select the resources that you would like help with: None Currently or been in a relationship where the following occur: No concerns reported THRIVE Score: 0 TRUE-7 AMB Questionnaire TRUE-7 Date TRUE - 7 assessed: 12/23/24 Source: Developed by Drs. Jamil Templeton, Valery Bedoya, Leandro Cali and colleagues, with an educational halle from [employer]. Review of Systems Const Denies chills, Denies fatigue, Denies fever(s), Denies headache(s) and Denies weakness ENT Denies dizziness and Denies headache(s) Card Denies dyspnea Resp Denies cough, Denies dyspnea, Denies wheezing and Denies other (shortness of breath) Musc Denies numbness and Denies tingling Neuro Denies dizziness, Denies headache(s), Denies numbness, Denies tingling and Denies weakness Psych Denies anxiety and Denies depression Endo Denies fatigue Aller/Immun Denies wheezing Physical exam (Primary Care) Vital Signs: Last Vital Signs Temp 98.0 F 03/28/25 08:51 Pulse 71 03/28/25 08:51 Resp 14 03/28/25 08:51 BP 130/64 03/28/25 08:51 Pulse Ox 98 03/28/25 08:51 Oxygen Delivery Method Room Air 03/28/25 08:51 BMI result Body Mass Index 25.8 Tobacco/Smoking Status: Tobacco use Status Tobacco use date assessed 12/23/24 03/28/25 08:54 Patient Tobacco Use Status Never used Tobacco 03/28/25 08:54 e-Cigarette/Vaping Use Never Used 03/28/25 08:54 Thrive Assessment: Date of Thrive Assessment Date Thrive assessed 12/23/24 03/28/25 08:54 Currently or been in a relationship where the following occur: No concerns reported Const General: well developed; No acute distress Nutritional Appearance: well nourished Orientation/consciousness: patient oriented x3 HENMT Head: Yes normocephalic and Yes atraumatic Eyes General: appearance normal, both eyes and all related structures Pupils: Equal, round and reactive pupils present EOM: EOMs intact bilaterally Resp Effort & Inspection: normal respiratory effort Auscultation: clear to auscultation bilaterally Cardio Rate: regular rate Rhythm: regular rhythm Heart sounds: S1 normal heart sound present, S2 normal heart sound present, no gallops, no murmurs and no rubs Neuro General: patient oriented x3 and gait normal Cranial nerves: Yes Equal, round and reactive pupils present Psych Affect: normal affect Coding Level of Care Code Est Pt Level 4 (47919) Diagnoses Mild renal insufficiency N28.9 Hyponatremia E87.1 Elevated liver enzymes R74.8 Essential hypertension I10 Breast cancer screening by mammogram Z. Assessment & Plan Assessment & Plan (1) Mild renal insufficiency: Code(s): N28.9 - Disorder of kidney and ureter, unspecified Category: Medical Plan: EGFR?is?stable Encouraged?good?hydration Will?continue?to?monitor (2) Hyponatremia: Code(s): E87.1 - Hypo-osmolality and hyponatremia Category: Medical Plan: Mild Maintain?good?hydration Will?monitor (3) Elevated liver enzymes: Code(s): R74.8 - Abnormal levels of other serum enzymes Category: Medical Plan: Improving Hydrate?well Will?continue?to?follow Labs?are?ordered (4) Essential hypertension: Code(s): I10 - Essential (primary) hypertension Category: Medical Plan: Blood?pressure?is?controlled.??Goal?is?less?than?140/90 Continue?medications (5) Breast cancer screening by mammogram: Code(s): Z12.31 - Encounter for screening mammogram for malignant neoplasm of breast Category: Medical Plan: Mammogram?is?normal.??Negative?for?malignancies. Continue?annual?screening Orders: Orders Comprehensive [place]. Panel Fast Today R74.8 - Abnormal levels of other serum enzymes, Z00.00 - Encounter for general adult medical examination without abnormal findings
[2025-03-28 08:51] VITALS: BP 130/64; PULSE 71; RESP 14; TEMP 36.7; O2SAT 98; BMI 25.8
== END 2025-03-28 09:24 | disposition home or self-care (01) ==
LOC: HO.HMCFM 08:34
PROVIDERS: PCP Family Medicine; Visit Provider Family Medicine
DX: N28.9 Disorder of kidney and ureter, unspecified (principal); E87.1 Hypo-osmolality and hyponatremia; R74.8 Abnormal levels of other serum enzymes; I10 Essential (primary) hypertension; Z12.31 Encounter for screening mammogram for malignant neoplasm of breast

== ENCOUNTER → 2025-03-28 08:33 | Outpatient (BNVA) | payer MEDICARE, BC, SELFPAY | PROVIDERS: PCP Family Medicine; Visit Provider Family Medicine | DX: N28.9 Disorder of kidney and ureter, unspecified (principal); E87.1 Hypo-osmolality and hyponatremia; R74.8 Abnormal levels of other serum enzymes; I10 Essential (primary) hypertension | CPT/HCPCS: 99212 ==

== ENCOUNTER 2025-08-01 08:43 | Outpatient (REF) | payer MEDICARE, BC, SELFPAY ==
--- OUTSIDE RECORDS SUMMARY | 2025-08-01 09:16 | XMS_ITS | Clinical Summary ---
Author Organization [facility] Address [facility] [place] [address] Care Team Providers Care Special Warfare Boat Operator Name Role Phone Unknown Primary Care Provider Unavailabl e Social History Tobacco Use Types Packs/Day Years Used Date Smoking Tobacco: Never Assessed Comments Unknown Sex and Gender Information Value Date Recorded Sex Assigned at Not on file Legal Sex Female 7:34 AM EST Gender Identity Not on file Sexual Orientation Not on file Plan of Treatment Health Maintenance Due Date Last Done Comments CT Colonography 1950 Colonoscopy 1950 Colorectal Cancer Screening 1950 FIT DNA 1950 FIT 1950 Sigmoidoscopy (10 year) with FIT yearly 1950 Sigmoidoscopy 1950 Hepatitis C Screening 1968 Tetanus/Diphtheria/Pertussis Vaccines (1 - Tdap) 07/31 Breast Cancer Share Decision Needed 1990 Breast Cancer screening 1990 Pneumoccocal Vaccine: 50+ (1 of 1 - PCV) 2000 Zoster vaccine (1 of 2) 2000 Advance Directive 2005 Bone Density Scan 2015 Covid-19 Vaccine (1 - season) 2025 Influenza (Flu) vaccine (1 o f 1 - Influenza standard series) 05/30/2025 Care Teams Special Warfare Boat Operator Relationship Specialty Start Date End Date Unknown None PCP - General 07/17/12
--- OUTSIDE RECORDS SUMMARY | 2025-08-01 09:16 | XMS_ITS | Encounter Summary ---
Author Organization [facility] Address [address] [place] [phone] Phone Care Team Providers Care Molding Line Operator Name Role Phone Pcp, Unknown Primary Care Provider Unavailabl e Encounter Details Date Type Department Care Team (Late st Contact Info) Description 04/02/2025 Procedure [facility], Ct Scan - [address] [address] Social History Tobacco Use Types Packs/Day Years Used Date Smoking Tobacco: Never Assessed Education Answer Date Recorded Are you interested in more education? Not on trini e 04/02/2025 Are you concerned about learning? Not on file 04/02/2025 No 04/02/2025 No 04/02/2025 Digital Access Answer Date Recorded No 04/02/2025 No 04/02/2025 Reliable internet access at home? Not on file 04/02/2025 Device with a working camera? Not on file Intimate Partner Violence Answer Date R ecorded Are you denied basic needs s uch as food, clothing, or medical care? No 04/02/2025 In the past 12 months have y ou been in a relationship with a person who hurts, threatens, or tries to control you? No 04/02/2025 Are you denied basic needs s uch as food, clothing, or medical care? No 04/02/2025 In the past 12 months have y ou been in a relationship with a person who hurts, threatens, or tries to control you? No 04/02/2025 Comments Unknown Sex and Gender Information Value Date Recorded Sex Assigned at Not on file Legal Sex Female 10:02 PM EDT Gender Identity Not on file Sexual Orientation Not on file documented as of this encounter Functional Status * Calculated C-SSRS Risk Score (Lifetime/Recent) Answer Date of Assessment Author No Risk Indicated 04/02/2025 8:16 AM EDT Viany Kaur RN * [place] Suicide Severity Rating Scale (Screener/Recent Self-Report) Question Answer Date of Assessment Author 1. Wish to be (Past 1 Month) No 025 8:16 AM EDT Vinay Kaur RN 2. Non-Specific Active Suici valeria Thoughts (Past 1 Month) No 04/02/2025 8:16 AM EDT Vinay Kaur RN 6. Suicidal Behavior (Lifetime) No 8:16 AM EDT Vinay Kaur RN documented as of this encounter Plan of Treatment Not on file documented as of this encounter Visit Diagnoses Not on filedocumented in this encounter Care Teams Molding Line Operator Relationship Specialty Start Date End Date Pcp, Unknown PCP - General 04/02/25 documented as of this encounter Additional Source Comments The information contained in this document represents components of the legal health record. It is not the complete legal health record.[facility]
--- OUTSIDE RECORDS SUMMARY | 2025-08-01 09:16 | XMS_ITS | Clinical Summary ---
Author Organization [facility] Address [address] [place] [phone] Phone Care Team Providers Care Director Strategic Planning Name Role Phone Pcp, Unknown Primary Care Provider Unavailabl e Allergies No known active allergies Medications No known medications Social History Tobacco Use Types Packs/Day Years [...] on file Sexual Orientation Not on file Last Filed Vital Signs Vital Sign Reading Time Taken Comments Blood Pressure 129/60 04/02/2025 12:00 PM EDT Pulse 69 04/02/2025 12:00 PM EDT Temperature 36.4 C (97.5 F) 04/02/2025 12:00 PM EDT Respiratory Rate 16 04/02/2025 12:00 PM EDT Oxygen Saturation 100% 04/02/2025 12:00 PM EDT Inhaled Oxygen Concentration - - Weight 68 kg (150 lb) 04/02/2025 8:15 AM EDT Height 162.6 cm (5' 4 ) 04/02/2025 8:15 AM EDT Body Mass Index 25.75 04/02/2025 8:15 AM EDT Plan of Treatment Health Maintenance Due Date Last Done Comments Adult Td,Tdap Booster 1950 LIPID PANEL 1950 DEPRESSION SCREENING 1962 SMOKING Hx and SMOKELESS TOB ACCO SCREENING 1963 HEPATITIS C SCREENING 1968 MAMMOGRAM 1990 COLOGUARD 1995 COLONOSCOPY 1995 COLORECTAL CANCER SCREENING 1995 FIT TEST 1995 FOBT 1995 SIGMOIDOSCOPY 1995 VIRTUAL COLONOSCOPY 1995 PNEUMOCOCCAL VACCINES (50+ y ears) (1 of 1 - PCV) 2000 ZOSTER VACCINES (1 of 2) 2000 OSTEOPOROSIS SCREENING INITI AL (ONE-TIME) 2015 INFLUENZA VACCINE (#1) 2025 COVID-19 VACCINE (1 - 2024-2 6 season) 2025 RSV VACCINE (1 - 1-dose 75+ series) 2025 HEPATITIS A VACCINES Aged Out No long er eligible based on patient's age to complete this topic HIB VACCINES Aged Out No longer eligi ble based on patient's age to complete this topic MENINGOCOCCAL VACCINES (ACWY) Aged Out No longer eligible based on patient's age to complete this topic MENINGOCOCCAL VACCINES (B) Aged Out N o longer eligible based on patient's age to complete this topic Medical Devices Not on file Insurance MEDICARE PART A & B [facility] FED[employer]AL MEDICARE PART A & B [facility] FEDERAL MEDICARE PART A & [place] [address] [place] [address] MEDICARE PART A & B [facility] MEDICARE PART A & B [facility] MEDICARE PART A & B [facility] FEDERAL Care Teams Director Strategic Planning Relationship Specialty Start Date End Date Pcp, Unknown PCP - General 04/02/25 Additional Source Comments The information contained in this document represents components of the legal health record. It is not the complete legal health record.[facility]
--- OUTSIDE RECORDS SUMMARY | 2025-08-01 09:16 | XMS_ITS | Patient Health Record ---
Author Organization [facility] Address [address] [place] [address] Care Team Providers Care Special Education Instructor Name Role Phone Easton Mari Primary Care Provider UnavailRodrigo Short Jr Unavailable [phone] Allergies No Known Allergies Reason For Referral [...] 145 MG 1 tablet Orally Once a day; Duration: 30 day(s) Active Estradiol Acetate 0.1 MG/24HR as directe d Vaginal as needed Active MiraLax (colon prep) 8.3 oun ce ((238) grams mixed with Gatorade or Crystal Light orally begin at 5:00 p.m. the day before the procedure; Duration: 1 day 04/04/2021 Active Atorvastatin Calcium 10 MG 1 tablet Oral ly Once a day; Duration: 30 day(s) Active Immunizations Vaccine Route Administration [...] Problem Status W/U Status Risk Notes Problem Colon cancer screening (077169339) Colon cancer screening (Z12.11) Active confirmed Problem Long-term current use of drug therapy (806939705) Long-term current use of high risk medication other than anticoagulant (Z79.899) Active confirmed Problem Long-term current use of drug therapy (472559660) group home current use of diuretic (Z79.899) Active confirmed Plan Of Treatment Future Test Test Name Order Date COLONOSCOPY 04/04/2021 Insurance Providers Payer Name Payer Address Payer Phone Subscriber Number Group Number Insured Name Patient Relationship to Insured Coverage Start Date Coverage End Date MED[place]ARE OF [place] [address] [place] [id number] [phone] [id number] JUDIE JONES Self - patient is the insured [facility] [address] [place] [address] [phone] [id number] JUDIE JONES Self - patient is the insured Medical (General) History Medical History History ICD Code hypertension diet controlled diabetes Elevated cholesterol Gastroesophageal reflux disease Diverticulitis Surgical History Surgery Date(Month/Year) section x2 hysterectomy breast biopsy Sigmoid colectomy
[2025-08-01 11:26] LABS: Appearance Urine Clear; Glucose Urine UA Negative (Negative); PH 7.5 (5.0-9.0); Specific Gravity - Urine 1.015 (1.005-1.025); UMIC TRIGGER UA YES
[2025-08-01 12:29] LABS: Alanine Aminotransferase 20 U/L (0-31); Albumin Level 4.7 g/dL (3.5-5.0); Alkaline Phosphatase 30 U/L (39-117); Anion Gap 12 (12-20); Aspartate Amino Transferase 34 U/L (5-31); Blood Urea Nitrogen 21 mg/dL (9-16); Calcium 9.5 mg/dL (8.4-10.2); Carbon Dioxide 27 mmol/L (22-29); Chloride 100 mmol/L (96-108); Estimated Glomerular Filt Rate 47; Potassium 4.1 mmol/L (3.3-5.1); Sodium 135 mmol/L (135-145); Total Protein 6.8 g/dL (6.5-8.0)
== END 2025-08-01 08:44 | disposition home or self-care (01) ==
LOC: HO.WFDLDS 08:43
PROVIDERS: Visit Provider Family Medicine
DX: Z00.00 Encounter for general adult medical examination without abnormal findings (principal); R74.8 Abnormal levels of other serum enzymes
CPT/HCPCS: 36415; 80053; 81001

== ENCOUNTER 2025-08-02 08:35 | Outpatient (AMB) | payer MEDICARE, BC, SELFPAY ==
--- NOTE | 2025-08-02 08:44 | A.OFFPC_ITS ---
Vital Signs 08/02/25 08:52 Height 5 ft 4 in Weight 149 lb 6 oz BMI 25.6 BP 120/68 Blood Pressure Location Rt brachial Position Sitting Respiration 14 Pulse 80 Pulse Source Pulse Oximeter Temp 97.4 F Temp Source Temporal Artery Scan Pulse Oximetry (%) 97 Oxygen Delivery Method Room Air Oxygen Flow Rate 97.4 Intake Visit Reasons: f/u chronic conditions Intake Note: Jessica presents in the office today for a follow up to chronic conditions. Allergies No Known Allergies (No Known Allergies*) Allergy (Verified 08/02/25 08:50) Medication List - Last Reconciled 08/02/25 by Easton Mari MD atorvastatin 10 mg PO DAILY 90 days estradiol 0.01%(0.1mg/gram) 1 g vaginal DAILY fenofibrate nanocrystallized 145 mg PO DAILY 90 days hydrochlorothiazide 25 mg PO DAILY 90 days lisinopril 10 mg PO DAILY 90 days omeprazole 20 mg PO DAILY 90 days Tobacco use date assessed: 08/02/25 Fall risk assessment: No Falls in past year Last assessed Fall Risk: 08/02/25 Dental Screening Dental Screen Date: 08/02/25 Did you have a dental visit in the last 12 months?: Yes Did you have a dental problem in the last 6 months where you did not have access to dental care?: No Was dental information given to patient?: Patient has dentist HPI f/u chronic conditions HPI Details 75 y/o female presents to f/u chronic co nditions. BP today 120/68, 80p. She is on lisinopril 10mg, HCTZ 25mg daily. Diet controlled diabetes. A1c today 5.2%. Had elevated liver enzymes in the past. Has been trying to wean down EtOH use. [facility] Medical History COVID-19 vaccine administered History of diverticulitis Elevated cholesterol GERD (gastroesophageal reflux disease) Diabetes HTN (hypertension) Surgical History Hx of cataract extraction H/O colonoscopy Hx of colectomy Hx of breast biopsy Hx of hysterectomy Hx of section Family History (Updated 08/02/25 @ 08:52 by Nadege Jacobson CMA) Mother Dementia Parkinsons Social History (Updated 08/02/25 @ 08:52 by Nadege Jacobson [facility]) Housing: House Alcohol intake: current Alcohol intake frequency: a few times a week Patient Tobacco Use Status: Never used Tobacco e-Cigarette/Vaping Use: Never Used Second Hand Smoke Exposure: No service: No Current occupational status: retired Current occupational exposures/hazards: No Cognitive needs: No Hearing needs: No Vision needs: No Questionnaire Thrive Questionnaire Date Thrive assessed: 12/23/24 TRUE-7 AMB Questionnaire TRUE-7 Date TRUE - 7 assessed: 12/23/24 Source: Developed by Drs. Jamil Templeton, Valery Bedoya, Leandro Cali and colleagues, with an educational halle from [employer]. Review of Systems Const Denies chills, Denies fatigue, Denies fever(s), Denies headache(s) and Denies weakness ENT Denies dizziness and Denies headache(s) Card Denies dyspnea Resp Denies cough, Denies dyspnea, Denies wheezing and Denies other (shortness of breath) Musc Denies numbness and Denies tingling Neuro Denies dizziness, Denies headache(s), Denies numbness, Denies tingling and Denies weakness Psych Denies anxiety and Denies depression Endo Denies fatigue Aller/Immun Denies wheezing Physical exam (Primary Care) Vital Signs: Last Vital Signs Temp 97.4 F 08/02/25 08:52 Pulse 80 08/02/25 08:52 Resp 14 08/02/25 08:52 BP 120/68 08/02/25 08:52 Pulse Ox 97 08/02/25 08:52 Oxygen Delivery Method Room Air 08/02/25 08:52 Oxygen Flow Rate 97.4 08/02/25 08:52 BMI result Body Mass Index 25.6 Tobacco/Smoking Status: Tobacco use Status Tobacco use date assessed 08/02/25 08/02/25 08:55 Patient Tobacco Use Status Never used Tobacco 08/02/25 08:52 e-Cigarette/Vaping Use Never Used 08/02/25 08:52 Thrive Assessment: Date of Thrive Assessment Date Thrive assessed 12/23/24 08/02/25 08:46 Const General: well developed; No acute distress Nutritional Appearance: well nourished Orientation/consciousness: patient oriented x3 HENMT Head: Yes normocephalic and Yes atraumatic Eyes General: appearance normal, both eyes and all related structures Pupils: Equal, round and reactive pupils present EOM: EOMs intact bilaterally Resp Effort & Inspection: normal respiratory effort Neuro General: patient oriented x3 and gait normal Cranial nerves: Yes Equal, round and reactive pupils present Psych Affect: normal affect Results AMB Hemoglobin A1c AMB Hemoglobin A1c 5.2 % Last Edit by Nadege Jacobson CMA on 08/02/25 09:00 Results Reviewed Results Reviewed: Laboratory Last Values Hgb A1c (Clinic) 5.2 % (4.0-6.0) 08/02/25 08:56 Coding Level of Care Code Est Pt Level 4 (40488) Diagnoses Diet-controlled diabetes mellitus E11.9 Essential hypertension I10 Stage 3a chronic kidney disease (CKD) N18.31 Elevated liver enzymes R74.8 Assessment & Plan Assessment & Plan (1) Diet-controlled diabetes mellitus: Code(s): E11.9 - Type 2 diabetes mellitus without complications Category: Medical Plan: A1c 5.2%. Good control. Goal is less than 7.0% Continue diabetic diet/diet-controlled (2) Essential hypertension: Code(s): I10 - Essential (primary) hypertension Category: Medical Plan: Blood pressure is well controlled today. Goal is less than 140/90 Tolerating blood pressure medications well however GFR has decreased slightly. See below (3) Stage 3a chronic kidney disease (CKD): Code(s): N18.31 - Chronic kidney disease, stage 3a Category: Medical Plan: GFR below 60 and has decreased from baseline slightly. Increase hydration Will stop hydrochlorothiazide and switch to amlodipine for blood pressure control. Will recheck next visit (4) Elevated liver enzymes: Code(s): R74.8 - Abnormal levels of other serum enzymes Category: Medical Plan: Ongoing mildly elevated AST She is working on weaning down her wine intake further. Will continue to monitor. May need ultrasound after upcoming visit in 3 months. Orders: Orders AMB Hemoglobin A1c Today E11.9 - Type 2 diabetes mellitus without complications Comprehensive Met. Panel Today R74.8 - Abnormal levels of other serum enzymes Medications: New amlodipine 5 mg PO DAILY 90 tabs 3RF 90 days Discontinued hydrochlorothiazide Discontinued Reason: Doctor's Order 25 mg PO DAILY 90 days 90 tabs 3RF
[2025-08-02 08:52] VITALS: BP 120/68; PULSE 80; RESP 14; TEMP 36.3; O2SAT 97; BMI 25.6
--- OUTSIDE RECORDS SUMMARY | 2025-08-02 08:58 | XMS_ITS | Clinical Summary ---
Author Organization [facility] Address [address] [place] [phone] Phone Care Team Providers Care Automatic Drill Operator Name Role Phone Pcp, Unknown Primary [...] file Insurance MEDICARE PART A & B [facility] FEDERAL MEDICARE PART A & B [facility] FED[employer]AL MEDICARE PART A & [place] [address] [place] [address] MEDICARE PART A & B [facility] MEDICARE PART A & B [facility] MEDICARE PART A & B [facility] [employer]AL Care Teams Automatic Drill Operator Relationship Specialty Start Date End Date Pcp, Unknown PCP - General 04/02/25 Additional Source Comments The information contained in this document represents components of the legal health record. It is not the complete legal health record.[facility]
--- OUTSIDE RECORDS SUMMARY | 2025-08-02 08:59 | XMS_ITS | Patient Health Record ---
Author Organization [facility] Address [address] [place] [id number] Care Team Providers Care Contact And Service Clerks Supervisor Name Role Phone Easton Mrai Primary Care Provider UnavailRodrigo Short Jr Unavailable [...] Status Risk Notes Problem Colon cancer screening (595060114) Colon cancer screening (Z12.11) Active confirmed Problem Long-term current use of drug therapy (657614327) Long-term current use of high risk medication other than anticoagulant (Z79.899) Active confirmed Problem Long-term current use of drug therapy (498336201) detention current use of diuretic (Z79.899) Active confirmed Plan Of Treatment Future Test Test Name Order Date COLONOSCOPY 04/04/2021 Insurance Providers Payer Name Payer Address Payer Phone Subscriber Number Group Number Insured Name Patient Relationship to Insured Coverage Start Date Coverage End Date MEDICARE OF [place] [address] [place] [id number] JUDIE JONES Self - patient is the insured [facility] [address] [place] [address] [phone] [id number] JUDIE JONES Self - patient is the insured Medical (General) History Medical History History ICD Code hypertension diet controlled diabetes Elevated cholesterol Gastroesophageal reflux disease Diverticulitis Surgical History Surgery Date(Month/Year) section x2 hysterectomy breast biopsy Sigmoid colectomy
--- OUTSIDE RECORDS SUMMARY | 2025-08-02 08:59 | XMS_ITS | Clinical Summary ---
Author Organization Formerly [facility] [address] Care Team Providers Care Applied Exercise Physiologist Name Role Phone Unknown Primary Care Provider [...] 1968 Tetanus/Diphtheria/Pertussis Vaccines (1 - Tdap) 07/31 Pneumoccocal Vaccine: 50+ (1 of 1 - PCV) 2000 Zoster vaccine (1 of 2) 2000 Advance Directive 2005 Bone Density Scan 2015 Covid-19 Vaccine (1 - 2024- season) 2025 Influenza (Flu) vaccine (1 o f 1 - Influenza standard series) 05/30/2025 RSV Vaccine (1 - 1-dose 75+ series) 2025 Care Teams Applied Exercise Physiologist Relationship Specialty Start Date End Date Unknown None PCP - General 07/17/12
--- OUTSIDE RECORDS SUMMARY | 2025-08-02 08:59 | XMS_ITS | Encounter Summary ---
Author Organization [facility] Address [address] [facility] [facility] [address] [place] [phone] Phone Care Team Providers Care Assistant Professor Of Spanish Name Role Phone Pcp, Unknown Primary Care Provider Unavailabl e Encounter Details Date Type Department Care Team (Late st Contact Info) Description 04/02/2025 Procedure Pass [facility], Ct Scan - [address] [address] Social History Tobacco Use Types Packs/Day Years [...] No Risk Indicated 04/02/2025 8:16 AM EDT Vinay Kaur RN * [place] Suicide Severity Rating Scale (Screener/Recent Self-Report) Question [...] on filedocumented in this encounter Care Teams Assistant Professor Of Spanish Relationship Specialty Start Date End Date Pcp, Unknown PCP - General 04/02/25 documented as of this encounter Additional Source Comments The information contained in this document represents components of the legal health record. It is not the complete legal health record.[facility]
== END 2025-08-02 09:27 | disposition home or self-care (01) ==
LOC: HO.HMCFM 08:35
PROVIDERS: PCP Family Medicine; Visit Provider Family Medicine
DX: E11.9 Type 2 diabetes mellitus without complications (principal); I10 Essential (primary) hypertension; N18.31 Chronic kidney disease, stage 3a; R74.8 Abnormal levels of other serum enzymes

== ENCOUNTER → 2025-08-02 08:35 | Outpatient (BNVA) | payer MEDICARE, BC, SELFPAY | PROVIDERS: PCP Family Medicine; Visit Provider Family Medicine | DX: I12.9 Hypertensive chronic kidney disease with stage 1 through stage 4 chronic kidney disease, or unspecified chronic kidney disease (principal); E11.22 Type 2 diabetes mellitus with diabetic chronic kidney disease; N18.31 Chronic kidney disease, stage 3a; R74.8 Abnormal levels of other serum enzymes | CPT/HCPCS: 83036; 99212 ==